=== PATIENT | male | born 1930 | race Caucasian/White ===

== ENCOUNTER 2018-04-24 15:17 | Inpatient (IN) | payer MEDICARE, OTHER ==
--- NOTE | 2018-04-24 16:16 | ED ---
HPI Chest Pain - HPI Summary HPI Summary: This is [facility] documenting for attending Timoteo Mcpherson This is [facility] documenting for attending Timoteo Matthews MD. Pt is a 87 y/o M c/o CP onset. Pain is described as and rated a /10 when asked. Assoc Sx: Denies: PMHx: FHx: Per triage, pt was at PMD office where EKG was done. They said that he needed to come in. He c/o chest pain last week according to family but nothing today. - History of Current Complaint Chief Complaint: EDGeneral Pain Intensity: 0 - Allergy/Home Medications Allergies/Adverse Reactions: Allergies Allergy/AdvReac Type Severity Reaction Status Date / Time No Known Allergies Allergy Verified 04/21/16 12:03 PMH/Surg Hx/FS Hx/Imm Hx Endocrine/Hematology History: Reports: Hx Diabetes Denies: Hx Anticoagulant Therapy, Hx Systemic Lupus Erythematosus, Hx Thyroid Disease Cardiovascular History: Reports: Hx Hypercholesterolemia, Hx Hypertension Denies: Hx Congestive Heart Failure, Hx Pacemaker/ICD Respiratory History: Denies: Hx Asthma, Hx Chronic Obstructive Pulmonary Disease (COPD) GI History: Denies: Hx Ulcer History: Denies: Hx Dialysis, Hx Renal Disease Musculoskeletal History: Reports: Hx Rheumatoid Arthritis, Hx Osteoporosis, Other Musculoskeletal History - pain right arm and swelling, fibromyalgia, arthritis Denies: Hx Scoliosis Sensory History: Reports: Hx Contacts or Glasses, Hx Hearing Aid Opthamlomology History: Reports: Hx Contacts or Glasses Neurological History: Denies: Hx Headaches, Other Neuro Impairments/Disorders Psychiatric History: Denies: Hx Panic Disorder - Cancer History Hx Chemotherapy: No - Surgical History Surgery Procedure, Year, and Place: TONSILS. Rt CATARACT Infectious Disease History: No Infectious Disease History: Denies: Hx Hepatitis, Hx Human Immunodeficiency Virus (HIV), Traveled Outside the [place] in Last 30 Days - Family History Known Family History: Positive: Cardiac Disease - Social History Occupation: Retired Lives: With Family Substance Use Type: Reports: None Physical Exam - Summary Physical Exam Summary: Constitutional: Well-developed, Well-nourished, Alert. (-) Distressed Skin: Warm, Dry HENT: Normocephalic; Atraumatic Eyes: Conjunctiva normal Neck: Musculoskeletal ROM normal neck. (-) JVD, (-) Stridor, (-) Tracheal deviation Cardio: Rhythm regular, rate normal, Heart sounds normal; Intact distal pulses; The pedal pulses are 2+ and symmetric. Radial pulses are 2+ and symmetric. (-) Murmur Pulmonary/Chest wall: Effort normal. (-) Respiratory distress, (-) Wheezes, (-) Rales Abd: Soft, (-), epigastric tenderness, (-) Distension, (-) Guarding, (-) Rebound Musculoskeletal: (-) Edema Lymph: (-) Cervical adenopathy Neuro: Alert, Oriented x3 Psych: Mood and affect Normal Triage Information Reviewed: Yes Vital Signs On Initial Exam: Initial Vitals Temp Pulse Resp BP Pulse Ox 98.3 F 61 16 95/71 93 04/24/18 15:24 04/24/18 15:24 04/24/18 15:24 04/24/18 15:24 04/24/18 15:24 Vital Signs Reviewed: Yes Diagnostics - Vital Signs Vital Signs Temp Pulse Resp BP Pulse Ox 04/24/18 15:24 98.3 F 61 16 95/71 93 - Laboratory Result Diagrams: 04/24/18 16:25 04/24/18 16:25 Lab Statement: Any lab studies that have been ordered have been reviewed, and results considered in the medical decision making process. Discharge - Discharge Plan Referrals: Dominic Layton MD [Primary Care Provider] -
[2018-04-24 16:35] LABS: Hematocrit 37 % (42-52); Hemoglobin 12.4 g/dl (14.0-18.0); Mean Corpuscular HGB Conc 34 g/dl (31-36); Mean Corpuscular Hemoglobin 30 pg (27-31); Mean Corpuscular Volume 90 fL (80-94); Platelet Count 261 10^3/ul (150-450); Red Blood Count 4.12 10^6/ul (4.00-5.40); Red Cell Distribution Width 15 % (10.5-15); White Blood Count 10.9 10^3/ul (3.5-10.8)
[2018-04-24 16:55] LABS: EGFR Non-African American 19.9 (>60)
[2018-04-24] MEDS ORDERED: NS 0.9% 1000 ML* 1,000 ML IV ONE (17:12)
--- NOTE | 2018-04-24 17:49 | RAD ---
INDICATION: Chest pain. COMPARISON: Comparison is made with a prior study from December 03, 2012. TECHNIQUE: Dual-energy PA and lateral views of the chest were obtained. FINDINGS: The heart is within normal limits in size. Mediastinal and hilar contours appear within normal limits. The lungs are clear. No pleural effusion is present. IMPRESSION: NO EVIDENCE FOR ACTIVE CARDIOPULMONARY DISEASE.
[2018-04-24 17:58] LABS: ABS Basophils 0.1 10^3/ul (0-0.2); ABS Eosinophils 0.4 10^3/ul (0-0.6); ABS Lymphocytes 0.8 10^3/ul (1.0-4.8); ABS Monocytes 0.6 10^3/ul (0-0.8); ABS Neutrophils 9.8 10^3/ul (1.5-7.7); ABS Nucleated RBC 0 10^3/ul; Eosinophil % 3.1 % (0-6); Lymphocyte % 7.2 % (25-47); Nucleated Red Blood Cells % 0.2
[2018-04-24] MEDS ORDERED: Aspirin 81 mg CHEW TAB* 81 MG TAB.CHEW PO ONE (18:34)
--- NOTE | 2018-04-24 18:52 | ED ---
HPI Cardiac - HPI Summary HPI Summary: This is [facility] documenting for attending Timoteo Matthews MD. LEVEL 5 CAVEAT DUE TO ALZHEIMERS This patient is an 87 year old M presenting to ED with a chief complaint of intermittent episodes of hypotension since about 1 month ago. Family reports his BP drops down to 70/40 after sitting down for a while. Then when he tries to stand up, he falls. Hes had multiple falls in the past month and has obtained an accumulation of multiple injuries to his legs bilaterally from them. He went to see his PCP and they recommended he come to the ED to be evaluated. Two nights ago was his last fall and he was found lying on the floor for 6 hours yesterday morning. The patient rates the pain 0/10 in severity. Symptoms aggravated by sitting down then standing up. Symptoms alleviated by nothing. Family reports 17 lbs weight loss in the past month due to decreased appetite, confusion secondary to Alzheimers, CP (one episode on 04/18/18), and he has been retaining urine recently. Patient denies LOC, burning with urination or unusual odor, and hematochezia. Family also says the patient wanders at night due to Alzheimers. The patient still has his appendix. - History of Current Complaint Chief Complaint: EDGeneral Stated Complaint: CHEST PAIN Hx Obtained From: Patient Hx From Patient Unobtainable Due To: Other - Alzheimer's Onset/Duration: Started Weeks Ago - began about 1 month ago, Resolved Timing: Intermittent, Lasting Weeks - since 1 month ago Current Severity: None Pain Intensity: 0 Pain Scale Used: 0-10 Numeric Aggravating Factor(s): Position - sitting down then standing up Alleviating Factor(s): Nothing Associated Signs and Symptoms: Positive: Chest Pain - one episode on 04/18/18, Other: - hypotension, has had multiple falls in the past month and obtained multiple injuries to his legs bilaterally, 17 lbs weight loss in the past month due to decreased appetite, confusion secondary to Alzheimers, retaining urine; denies LOC, burning with urination or unusual odor, and hematochezia. - Allergy/Home Medications Allergies/Adverse Reactions: Allergies Allergy/AdvReac Type Severity Reaction Status Date / Time No Known Allergies Allergy Verified 04/21/16 12:03 Home Medications: Home Medications Aspirin EC TAB* [Ecotrin EC Low Dose 81 MG*] 81 mg PO DAILY 04/24/18 [History Confirmed 04/24/18] Leflunomide (NF) [Arava (NF)] 10 mg PO DAILY 04/24/18 [History Confirmed ] Lisinopril TAB* [Prinivil TAB*] 20 mg PO DAILY 04/24/18 [History Confirmed 04/24] Melatonin 10 mg PO BEDTIME 04/24/18 [History Confirmed 04/24/18] Metoprolol Succinate XL TAB* [Toprol XL TAB*] 50 mg PO DAILY 04/24/18 [History Confirmed 04/24/18] Pramipexole TAB* [Mirapex TAB*] 0.5 mg PO BID 04/24/18 [History Confirmed ] Pramipexole TAB* [Mirapex TAB*] 1 mg PO BEDTIME 04/24/18 [History Confirmed ] Pregabalin [Lyrica] 75 mg PO BID 04/24/18 [History Confirmed 04/24/18] Rivastigmine Tartrate [Rivastigmine] 4.5 mg PO BID 04/24/18 [History Confirmed 04/24/18] Simvastatin TAB(NF) [Zocor(NF)] 20 mg PO QPM 04/24/18 [History Confirmed ] Sitagliptin (NF) [Januvia (NF)] 50 mg PO DAILY 04/24/18 [History Confirmed 04/24] traMADol TAB* [Ultram*] 50 mg PO BID PRN MDD 100 mg 04/24/18 [History Confirmed 04/24/18] PMH/Surg Hx/FS Hx/Imm Hx Endocrine/Hematology History: Reports: Hx Diabetes Denies: Hx Anticoagulant Therapy, Hx Systemic Lupus Erythematosus, Hx Thyroid Disease Cardiovascular History: Reports: Hx Hypercholesterolemia, Hx Hypertension Denies: Hx Congestive Heart Failure, Hx Pacemaker/ICD Respiratory History: Denies: Hx Asthma, Hx Chronic Obstructive Pulmonary Disease (COPD) GI History: Denies: Hx Ulcer History: Denies: Hx Dialysis, Hx Renal Disease Musculoskeletal History: Reports: Hx Rheumatoid Arthritis, Hx Osteoporosis, Other Musculoskeletal History - pain right arm and swelling, fibromyalgia, arthritis Denies: Hx Scoliosis Sensory History: Reports: Hx Contacts or Glasses, Hx Hearing Aid Opthamlomology History: Reports: Hx Contacts or Glasses Neurological History: Denies: Hx Headaches, Other Neuro Impairments/Disorders Psychiatric History: Denies: Hx Panic Disorder - Cancer History Hx Chemotherapy: No - Surgical History Surgery Procedure, Year, and Place: TONSILS. Rt CATARACT Infectious Disease History: No Infectious Disease History: Denies: Hx Hepatitis, Hx Human Immunodeficiency Virus (HIV), Traveled Outside the [place] in Last 30 Days - Family History Known Family History: Positive: Cardiac Disease - Social History Occupation: Retired Lives: With Family Alcohol Use: None Substance Use Type: Reports: None Smoking Status (MU): Former Smoker Review of Systems Positive: Chest Pain - one episode on 04/18/18 Positive: Other - 17 lbs weight loss in the past month due to decreased appetite ; denies hematochezia Positive: other - retaining urine; denies unusual odor in urine. Negative: burning Positive: Other - multiple injuries on legs bilaterally due to multiple falls in the past month Neurological: Other - confusion secondary to Alzheimers; denies LOC All Other Systems Reviewed And Are Negative: No Physical Exam - Summary Physical Exam Summary: Constitutional: Well-developed, Well-nourished, Alert. (-) Distressed Skin: Warm, Dry HENT: Normocephalic; Atraumatic; mucous membranes are dry Eyes: Conjunctiva normal Neck: Musculoskeletal ROM normal neck. (-) JVD, (-) Stridor, (-) Tracheal deviation Cardio: Rhythm regular, rate normal, Heart sounds normal; Intact distal pulses; The pedal pulses are 2+ and symmetric. Radial pulses are 2+ and symmetric. (-) Murmur Pulmonary/Chest wall: Effort normal. (-) Respiratory distress, (-) Wheezes, (-) Rales Abd: Soft, Suprapubic and RLQ tenderness, (-) Distension, (-) Guarding, (-) Rebound Musculoskeletal: (-) Edema Lymph: (-) Cervical adenopathy Neuro: Alert, Oriented x3 Psych: Mood and affect Normal Triage Information Reviewed: Yes Vital Signs On Initial Exam: Initial Vitals Temp Pulse Resp BP Pulse Ox 98.3 F 61 16 95/71 93 04/24/18 15:24 04/24/18 15:24 04/24/18 15:24 04/24/18 15:24 04/24/18 15:24 Vital Signs Reviewed: Yes Completion Of Physical Exam Limited Due To: Level 5 - Alzheimer's Diagnostics - Vital Signs Vital Signs Temp Pulse Resp BP Pulse Ox 04/24/18 17:36 24 114/51 04/24/18 17:06 73 23 98 04/24/18 15:24 98.3 F 61 16 95/71 93 - Laboratory Lab Results: Lab Results 04/24/18 04/24/18 04/24/18 Range/Units 16:25 16:25 16:25 WBC 10.9 H (3.5-10.8) 10^3/ul RBC 4.12 (4.00-5.40) 10^6/ul Hgb 12.4 L (14.0-18.0) g/dl Hct 37 L (42-52) % MCV 90 (80-94) fL MCH 30 (27-31) pg MCHC 34 (31-36) g/dl RDW 15 (10.5-15) % Plt Count 261 (150-450) 10^3/ul MPV 8.0 (7.4-10.4) um3 Neut % (Auto) 83.5 H (38-83) % Lymph % (Auto) 7.2 L (25-47) % [place] % (Auto) 5.5 (0-7) % Eos % (Auto) 3.1 (0-6) % Baso % (Auto) 0.7 (0-2) % Absolute Neuts (auto) 9.8 H (1.5-7.7) 10^3/ul Absolute Lymphs (auto) 0.8 L (1.0-4.8) 10^3/ul Absolute Monos (auto) 0.6 (0-0.8) 10^3/ul Absolute Eos (auto) 0.4 (0-0.6) 10^3/ul Absolute Basos (auto) 0.1 (0-0.2) 10^3/ul Absolute Nucleated RBC 0 10^3/ul Nucleated RBC % 0.2 Sodium 142 (135-145) mmol/L Potassium 4.6 (3.5-5.0) mmol/L Chloride 110 (101-111) mmol/L Carbon Dioxide 24 (22-32) mmol/L Anion Gap 8 (2-11) mmol/L BUN 73 H (6-24) mg/dL Creatinine 3.01 H (0.67-1.17) mg/dL Est GFR ( Amer) 24.1 (>60) Est GFR (Non-Af Amer) 19.9 (>60) BUN/Creatinine Ratio 24.3 H (8-20) Glucose 94 (70-100) mg/dL Lactic Acid 0.9 (0.5-2.0) mmol/L Calcium 8.9 (8.6-10.3) mg/dL Total Bilirubin 0.40 (0.2-1.0) mg/dL AST 22 (13-39) U/L ALT 12 (7-52) U/L Alkaline Phosphatase 57 (34-104) U/L Troponin I 0.05 H* (<0.04) ng/mL Total Protein 6.5 (6.4-8.9) g/dL Albumin 3.2 (3.2-5.2) g/dL Globulin 3.3 (2-4) g/dL Albumin/Globulin Ratio 1.0 (1-3) Result Diagrams: 04/24/18 16:25 04/24/18 16:25 Lab Statement: Any lab studies that have been ordered have been reviewed, and results considered in the medical decision making process. - Radiology CXR Radiology Interpretation Completed By: Radiologist - NO EVIDENCE FOR ACTIVE CARDIOPULMONARY DISEASE. ED physician has reviewed this radiology report. - EKG 1552 Cardiac Rate: Other Rate - afib at 79 BPM EKG Rhythm: Atrial Fibrillation ST Segment: Normal Disposition - Course Assessment/Plan: Orthostatic hypotension with low abdominal pain. CT due to his dementia. Acute on chronic renal failure. Medicine will follow up on CT. Nursing with instructions to place a juárez if unable to void. - Differential Dx - Cardiopulmonary Differential Diagnoses - Cardiopulmonary: Other - urinary retention, frequent fall, orthostasis, lower abdominal pain, elevated troponin - Diagnoses Provider Diagnoses: Urinary retention, Frequent falls, Orthostasis, Lower abdominal pain, Elevated troponin - Physician Notifications Discussed Care Of Patient With: Lokesh Benito Time Discussed With Above Provider: 18:48 Instructed by Provider To: Other - Consulted Dr. Benito at 1848 who accepts the patient for admission. - Critical Care Time Critical Care Time: 30-74 min - 35 minutes Discharge - Sign-Out/Discharge Documenting (check all that apply): Patient Departure - Discharge Plan Condition: Stable Disposition: ADMITTED TO [facility] Referrals: Dominic Layton MD [Primary Care Provider] -
--- NOTE | 2018-04-24 20:29 | HP ---
H&P (Free Text) History and Physical: PCP: VERONICA Layton MD Date/Time: 04/24/20182124 CC: sent by PCP for frequent falls, orthostatic vitals in office HPI: Mr Kimball is an 87YO male HX dementia, DM2, RA, HTN, HLD, RLS who was seen by his PCP's office today wherein family reported 4-5 falls over the past week, 17# weight loss over the last month, & poor PO intake. They do recall a brief episode of chest discomfort last Monday, but the patient cannot characterize or give any associated s/s. He reports some sweats, but cannot further give information other than it is not new. He otherwise denies any symptomotology, specifically no chest pain, SOB, N/V/D, F/C, focal W/N/T, change in speech/ swallow, and headache. His last bowel movement per was this AM and "very normal", no black or bloody aspect. PMedHx dementia, moderate DM2 HTN HLD rheumatoid arthritis Ambulatory Orders Furosemide TAB* [Lasix TAB*] 20 mg PO DAILY 04/21/16 Aspirin EC TAB* [Ecotrin EC Low Dose 81 MG*] 81 mg PO DAILY 04/24/18 Leflunomide (NF) [Arava (NF)] 10 mg PO DAILY 04/24/18 Lisinopril TAB* [Prinivil TAB*] 20 mg PO DAILY 04/24/18 Melatonin 10 mg PO BEDTIME 04/24/18 Metoprolol Succinate XL TAB* [Toprol XL TAB*] 50 mg PO DAILY 04/24/18 Pramipexole TAB* [Mirapex TAB*] 0.5 mg PO BID 04/24/18 Pramipexole TAB* [Mirapex TAB*] 1 mg PO BEDTIME 04/24/18 Pregabalin [Lyrica] 75 mg PO BID 04/24/18 Rivastigmine Tartrate [Rivastigmine] 4.5 mg PO BID 04/24/18 Simvastatin TAB(NF) [Zocor(NF)] 20 mg PO QPM 04/24/18 Sitagliptin (NF) [Januvia (NF)] 50 mg PO DAILY 04/24/18 traMADol TAB* [Ultram*] 50 mg PO BID PRN MDD 100 mg 04/24/18 Allergies No Known Allergies Allergy (Verified 04/21/16 12:03) PSurgHx cataract extraction tonsillectomy SocHx: trivial smoking HX, no alcohol or recreational drugs; lives with his ; 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; DNR/I code status FamHx: reviewed & non-contributory to presentation ROS: as above, otherwise reviewed and all were negative vitals: Vital Signs Temp 36.8 C 04/24/18 15:24 Pulse 80 04/24/18 20:35 Resp 23 04/24/18 20:35 BP 143/77 04/24/18 20:35 Pulse Ox 100 04/24/18 20:35 Intake & Output 04/23/18 04/24/18 04/24/18 23:59 11:59 23:59 Intake Total 1000 Balance 1000 Weight 64.864 kg Intake: IV Fluids 1000 Constitutional: NAD, normally developed, well-nourished elderly white male HEENM: atraumatic; sclera/conjunctiva: anicteric/clear; hearing: clinically mildly decreased; oropharynx: clear, mucosa tacky Neck: soft tissue: non-tender; thyroid: normal Pulmonary: clear to auscultation bilaterally, good aeration, no accessory muscle use CV: RR/RR, normal S1S2, no carotid bruit, no jugular venous distention, 2+ B DP/ PT, 1+ BLE edema Abdominal: soft, non-distended, minimal transient tenderness which cleared with further palpation, no rebound/guarding/rigidity, normoactive bowel sounds, no hepatosplenomegaly or masses, no costovertebral angle tenderness Musculoskeletal: general: grossly intact, non-tender Integumental: light erythema B shins w/o warmth, induration, tenderness, flocculence, or discharge; band-aid to R morrow Psychiatric orientation: AA&O to PP, very loosely to situation affect: calm mood: pleasant eye contact: fair content: paucity of details memory: poor responses: mildly slowed insight: poor Testing: Lab Results 04/24/18 04/24/18 04/24/18 Range/Units 16:25 16:25 16:25 WBC 10.9 H (3.5-10.8) 10^3/ul RBC 4.12 (4.00-5.40) 10^6/ul Hgb 12.4 L (14.0-18.0) g/dl Hct 37 L (42-52) % MCV 90 (80-94) fL MCH 30 (27-31) pg MCHC 34 (31-36) g/dl RDW 15 (10.5-15) % Plt Count 261 (150-450) 10^3/ul MPV 8.0 (7.4-10.4) um3 Neut % (Auto) 83.5 H (38-83) % Lymph % (Auto) 7.2 L (25-47) % [place] % (Auto) 5.5 (0-7) % Eos % (Auto) 3.1 (0-6) % Baso % (Auto) 0.7 (0-2) % Absolute Neuts (auto) 9.8 H (1.5-7.7) 10^3/ul Absolute Lymphs (auto) 0.8 L (1.0-4.8) 10^3/ul Absolute Monos (auto) 0.6 (0-0.8) 10^3/ul Absolute Eos (auto) 0.4 (0-0.6) 10^3/ul Absolute Basos (auto) 0.1 (0-0.2) 10^3/ul Absolute Nucleated RBC 0 10^3/ul Nucleated RBC % 0.2 Sodium 142 (135-145) mmol/L Potassium 4.6 (3.5-5.0) mmol/L Chloride 110 (101-111) mmol/L Carbon Dioxide 24 (22-32) mmol/L Anion Gap 8 (2-11) mmol/L BUN 73 H (6-24) mg/dL Creatinine 3.01 H (0.67-1.17) mg/dL Est GFR ( Amer) 24.1 (>60) Est GFR (Non-Af Amer) 19.9 (>60) BUN/Creatinine Ratio 24.3 H (8-20) Glucose 94 (70-100) mg/dL Lactic Acid 0.9 (0.5-2.0) mmol/L Calcium 8.9 (8.6-10.3) mg/dL Total Bilirubin 0.40 (0.2-1.0) mg/dL AST 22 (13-39) U/L ALT 12 (7-52) U/L Alkaline Phosphatase 57 (34-104) U/L Troponin I 0.05 H* (<0.04) ng/mL Total Protein 6.5 (6.4-8.9) g/dL Albumin 3.2 (3.2-5.2) g/dL Globulin 3.3 (2-4) g/dL Albumin/Globulin Ratio 1.0 (1-3) ECG, personally reviewed: sinus 1st degree AV block rate 79, no ischemia; similar to comparison 12/03/2012 but with an increased degree of 1st degree block CXR, personally reviewed: IMPRESSION: NO EVIDENCE FOR ACTIVE CARDIOPULMONARY DISEASE. CT chest WO, personally reviewed: IMPRESSION: 1. Stable small hiatal hernia. 2. There may be cholelithiasis without pericholecystic inflammatory change. 3. Left testicle appears to be high riding in the left inguinal canal. 4. Stable colonic diverticulosis. There is mild wall thickening and the proximal aspect of the sigmoid colon which may be due to underdistention, we cannot completely exclude mild or early changes of acute diverticulitis or non-specific colitis without abscess or signs of gross perforation. Impression: 87M HX dementia, DM2, RA, HTN, HLD, RLS presents with dehydration, orthostasis, & LAURA w/ recurrent falls & elevated troponin; mildly abnormal CT abd/pel DIAGNOSIS & PLAN Primary dehydration w/ orthostasis & LAURA : IVFs : recheck orthostatic vitals in AM : trend renal function : supportive care recurrent recent falls : as above : PT consult in AM mildly abnormal CT abd/pel : trend WBCs & temperature curves : no indication for ABX at this time Secondary dementia, moderate : continue rivastigmine DM2 : check A1c : continue sitagliptin : consistent carb diet : correctional insulin HTN : hold furosemide : continue lisinopril at decreased dose of 10mg QAM : continue metoprolol XL at 50mg HS restarting 04/25 HLD : continue simvastatin rheumatoid arthritis : continue leflunomide RLS : continue pramipexole Admission Rational: Inpatient as without the above interventions the risk of impending adverse outcome is unacceptably high; inappropriate for the outpatient setting DVTp: heparin SQ Code Status: DNR/I, MOLST filled out HCP:
[2018-04-24] MEDS ORDERED: Ondansetron ODT TAB* 4 MG PO PRN (22:12)
[2018-04-24] MEDS ORDERED: traMADol TAB* 50 MG PO PRN (22:16)
[2018-04-24] MEDS: Pramipexole TAB* 0.5 MG PO SCH ×2 (23:40)
[2018-04-24] MEDS: CMCS:Rivastigmine CAP(NF) 1.5 MG CAP PO SCH (23:41)
[2018-04-24] MEDS: NS 0.9% 1000 ML* 1,000 ML IV SCH (23:44)
[2018-04-25] MEDS: Melatonin 3 MG TAB PO PRN (01:32)
[2018-04-25] MEDS: Heparin VIAL(*) 5000 UNITS/ML VIAL (FIVE THOUSAND) SUBCUT SCH ×3 (05:22→20:49)
[2018-04-25 06:22] LABS: ABS Basophils 0 10^3/ul (0-0.2); ABS Eosinophils 0.3 10^3/ul (0-0.6); ABS Lymphocytes 0.8 10^3/ul (1.0-4.8); ABS Monocytes 0.6 10^3/ul (0-0.8); ABS Neutrophils 7.8 10^3/ul (1.5-7.7); ABS Nucleated RBC 0 10^3/ul; Eosinophil % 3.4 % (0-6); Hematocrit 34 % (42-52); Hemoglobin 11.3 g/dl (14.0-18.0); Lymphocyte % 8.1 % (25-47); Mean Corpuscular HGB Conc 33 g/dl (31-36); Mean Corpuscular Hemoglobin 30 pg (27-31); Mean Corpuscular Volume 89 fL (80-94); Nucleated Red Blood Cells % 0; Platelet Count 212 10^3/ul (150-450); Red Blood Count 3.81 10^6/ul (4.00-5.40); Red Cell Distribution Width 15 % (10.5-15); White Blood Count 9.6 10^3/ul (3.5-10.8)
[2018-04-25] MEDS: Acetaminophen TAB* 325 MG PO PRN ×2 (07:18→13:33)
--- NOTE | 2018-04-25 08:10 | RAD ---
CLINICAL HISTORY: LOWER ABD PAIN, RLQ PAIN COMPARISON: September 17, 2013 TECHNIQUE: Multiple contiguous axial CT scans were obtained of the abdomen and pelvis, without intravenous contrast enhancement. Coronal and sagittal multiplanar reformations are submitted for review. Oral contrast was administered. FINDINGS: The study is limited by the lack of intravenous contrast. This limits evaluation of the solid organs and vasculature. LUNG BASES: The lung bases are clear. LIVER: The liver is normal in shape, size, contour, and attenuation. BILE DUCTS: There is no intrahepatic or extrahepatic biliary dilatation. GALLBLADDER: There is a calculus noted within the gallbladder. There is no pericholecystic inflammatory change. PANCREAS: The pancreas is normal, without mass or ductal dilatation. SPLEEN: Normal in size and appearance. UPPER GI TRACT: Evaluation of the gastrointestinal tract is limited by incomplete gastric distention. There is a small hiatal hernia. SMALL BOWEL AND MESENTERY: The small bowel is normal in contour, course, and caliber. There is no obstruction or dilatation. COLON: There are multiple diverticula of the descending and sigmoid colon. There is mild mucosal thickening of the sigmoid colon.. The appendix is not identified. There is no appreciable inflammatory change within the right lower quadrant. ADRENALS: Normal bilaterally. KIDNEYS: There is an exophytic simple cyst of the midpole the right kidney. There is a simple cyst of the midpole of the left kidney. There is no appreciable hydronephrosis or nephrolithiasis. BLADDER: The bladder is collapsed around a Christiansen catheter. PELVIC ORGANS: The prostate is diffusely enlarged. The seminal vesicles are symmetric. The left testicle is noted in the inferior extent of the left internal canal. AORTA: There is calcific atherosclerotic disease of the abdominal aorta and its branches, without aneurysmal dilatation IVC: Unremarkable LYMPH NODES: There is no lymphadenopathy by size criteria. ABDOMINAL WALL: There is no evidence for abdominal wall hernia. BONES AND SOFT TISSUES: There is a scoliotic curvature of the spine. Degenerative changes are noted. OTHER: None IMPRESSION: 1. DIVERTICULOSIS. THERE IS MILD MUCOSAL THICKENING OF THE SIGMOID COLON WHICH MAY BE AN ARTIFACT OF INCOMPLETE DISTENTION, THOUGH EARLY COLITIS/DIVERTICULITIS IS WITHIN THE DIFFERENTIAL. 2. CHOLELITHIASIS. 3. HIATAL HERNIA. 4. THE APPENDIX IS NOT VISUALIZED. THERE IS NO INFLAMMATORY CHANGE OF THE RIGHT LOWER QUADRANT. R0
[2018-04-25] MEDS: Docusate CAP* 100 MG PO SCH ×2 (08:12→20:44)
[2018-04-25] MEDS: Insulin LISPRO* 1 UNITS UNIT SUBCUT SCH ×4 (08:13→20:19)
[2018-04-25] MEDS ORDERED: Lisinopril TAB* 10 MG PO SCH (09:00)
[2018-04-25] MEDS: Pregabalin CAP(*) 25 MG PO SCH ×2 (09:11→20:44)
[2018-04-25] MEDS: Pramipexole TAB* 0.5 MG PO SCH ×3 (09:12→20:46)
[2018-04-25] MEDS: LEFLUNOMIDE 10 MG PO SCH (09:12)
[2018-04-25] MEDS: Aspirin EC TAB* 81 MG TAB.EC PO SCH (09:12)
[2018-04-25] MEDS: CMCS:SitaGLIPtin (NF) 25 MG TAB PO SCH (09:13)
[2018-04-25] MEDS: CMCS:Rivastigmine CAP(NF) 1.5 MG CAP PO SCH ×2 (09:13→20:48)
[2018-04-25] MEDS: NS 0.9% 1000 ML* 1,000 ML IV SCH (09:13)
[2018-04-25] MEDS ORDERED: NS 0.9% 1000 ML* 1,000 ML IV SCH (15:30)
[2018-04-25] MEDS: traMADol TAB* 50 MG PO SCH (16:36)
[2018-04-25] MEDS ORDERED: Atorvastatin* 10 MG TAB PO SCH (18:00)
--- NOTE | 2018-04-25 20:14 | PN ---
Subjective Date of Service: 04/25/18 Interval History: c/o bilat ankle pain chronic, C/o right shoulder pain , Denies chest pain or shortness of breath . Denies n/v/d. patient is confused to place and time. Family History: Unchanged from Admission Social History: Unchanged from Admission Past Medical History: Unchanged from Admission Objective Active Medications: Acetaminophen (Tylenol Tab*) 650 mg PO Q6H PRN PRN Reason: FEVER/PAIN Last Admin: 04/25/18 13:33 Dose: 650 mg Aspirin (Aspirin Ec Tab*) 81 mg PO DAILY [facility] Last Admin: 04/25/18 09:12 Dose: 81 mg Atorvastatin Calcium (Lipitor*) 10 mg PO QPM [facility] Last Admin: 04/25/18 16:36 Dose: 10 mg Docusate Sodium (Colace Cap*) 100 mg PO BID [facility] Last Admin: 04/25/18 08:12 Dose: Not Given Heparin Sodium (Porcine) (Heparin Vial(*)) 5,000 units SUBCUT Q8HR [facility] Last Admin: 04/25/18 13:32 Dose: 5,000 units Insulin Human Lispro (Humalog*) 0 units SUBCUT ACHS [facility]; Protocol Last Admin: 04/25/18 16:37 Dose: Not Given Leflunomide (Arava (Nf)) 10 mg PO DAILY [facility]; Protocol Last Admin: 04/25/18 09:12 Dose: 10 mg Melatonin (Melatonin) 3 mg PO BEDTIME PRN; Protocol PRN Reason: Sleep Last Admin: 04/25/18 01:32 Dose: 3 mg Metoprolol Succinate (Toprol Xl Tab*) 25 mg PO QPM [facility] Ondansetron HCl (Zofran Odt Tab*) 4 mg PO Q6H PRN PRN Reason: n/v Last Admin: 04/25/18 01:32 Dose: 4 mg Pramipexole Dihydrochloride (Mirapex Tab*) 1 mg PO BEDTIME [facility] Last Admin: 04/24/18 23:40 Dose: 1 mg Pramipexole Dihydrochloride (Mirapex Tab*) 0.5 mg PO BID [facility] Last Admin: 04/25/18 09:12 Dose: 0.5 mg Pregabalin (Lyrica Cap(*)) 75 mg PO BID [facility] Last Admin: 04/25/18 09:11 Dose: 75 mg Rivastigmine Tartrate (Exelon (Nf)) 4.5 mg PO BID [facility] Last Admin: 04/25/18 09:13 Dose: 4.5 mg Sitagliptin Phosphate (Januvia (Nf)) 50 mg PO DAILY [facility] Last Admin: 04/25/18 09:13 Dose: 50 mg Tramadol HCl (Ultram*) 50 mg PO 0600,1800 [facility] Last Admin: 04/25/18 16:36 Dose: 50 mg Vital Signs - 8 hr 04/25/18 04/25/18 04/25/18 12:13 12:22 12:31 Temperature Pulse Rate 57 56 54 Respiratory Rate Blood Pressure 117/52 128/54 122/70 (mmHg) O2 Sat by Pulse 99 96 Oximetry 04/25/18 04/25/18 04/25/18 12:32 15:31 16:36 Temperature 96.9 F Pulse Rate 56 59 Respiratory 20 17 Rate Blood Pressure 128/54 135/55 (mmHg) O2 Sat by Pulse 98 Oximetry 04/25/18 04/25/18 04/25/18 18:16 19:41 19:45 Temperature 97.5 F Pulse Rate 57 Respiratory 20 20 18 Rate Blood Pressure 131/58 (mmHg) O2 Sat by Pulse 99 Oximetry Oxygen Devices in Use Now: None Appearance: appears comfortable resting in bed Eyes: No Scleral Icterus Ears/Nose/Mouth/Throat: Clear Oropharnyx, Mucous Membranes Moist Neck: NL Appearance and Movements; NL JVP, Trachea Midline Respiratory: Symmetrical Chest Expansion and Respiratory Effort, Clear to Auscultation Cardiovascular: NL Sounds; No Murmurs; No JVD, No Edema Abdominal: NL Sounds; No Tenderness; No Distention Extremities: No Clubbing, Cyanosis, - - bilat lower ext with pitting edema + 2 Skin: No Rash or Ulcers, No Nodules or Sclerosis Neurological: - - confused to place and time Nutrition: Taking PO's Result Diagrams: 04/26/18 05:23 04/26/18 05:23 Additional Lab and Data: Lab Results 04/24/18 04/24/18 04/24/18 Range/Units 16:25 16:25 16:25 WBC 10.9 H (3.5-10.8) 10^3/ul RBC 4.12 (4.00-5.40) 10^6/ul Hgb 12.4 L (14.0-18.0) g/dl Hct 37 L (42-52) % MCV 90 (80-94) fL MCH 30 (27-31) pg MCHC 34 (31-36) g/dl RDW 15 (10.5-15) % Plt Count 261 (150-450) 10^3/ul MPV 8.0 (7.4-10.4) um3 Neut % (Auto) 83.5 H (38-83) % Lymph % (Auto) 7.2 L (25-47) % Shelby % (Auto) 5.5 (0-7) % Eos % (Auto) 3.1 (0-6) % Baso % (Auto) 0.7 (0-2) % Absolute Neuts (auto) 9.8 H (1.5-7.7) 10^3/ul Absolute Lymphs (auto) 0.8 L (1.0-4.8) 10^3/ul Absolute Monos (auto) 0.6 (0-0.8) 10^3/ul Absolute Eos (auto) 0.4 (0-0.6) 10^3/ul Absolute Basos (auto) 0.1 (0-0.2) 10^3/ul Absolute Nucleated RBC 0 10^3/ul Nucleated RBC % 0.2 Sodium 142 (135-145) mmol/L Potassium 4.6 (3.5-5.0) mmol/L Chloride 110 (101-111) mmol/L Carbon Dioxide 24 (22-32) mmol/L Anion Gap 8 (2-11) mmol/L BUN 73 H (6-24) mg/dL Creatinine 3.01 H (0.67-1.17) mg/dL Est GFR ( Amer) 24.1 (>60) Est GFR (Non-Af Amer) 19.9 (>60) BUN/Creatinine Ratio 24.3 H (8-20) Glucose 94 (70-100) mg/dL Lactic Acid 0.9 (0.5-2.0) mmol/L Calcium 8.9 (8.6-10.3) mg/dL Total Bilirubin 0.40 (0.2-1.0) mg/dL AST 22 (13-39) U/L ALT 12 (7-52) U/L Alkaline Phosphatase 57 (34-104) U/L Troponin I 0.05 H* (<0.04) ng/mL Total Protein 6.5 (6.4-8.9) g/dL Albumin 3.2 (3.2-5.2) g/dL Globulin 3.3 (2-4) g/dL Albumin/Globulin Ratio 1.0 (1-3) Assess/Plan/Problems-Billing Assessment: Mr. Kimball is a 87 y.o male with a hx of dementia , DM2, RA,HTN, HLD and RLS who presented to the emergency room with frequent falls and orthostatic vital sign at his PCP office. Patient also reported remote history of chest pain , but currently denies any chest pain. - Patient Problems (1) Falls Current Visit: Yes Status: Acute Comment: -suspect this is related to his orthostatic hypotension - Orthostatic repeated today and are WNL after IV hydration - Will stop IVF - PT/OT consult (2) HTN (hypertension) Current Visit: Yes Status: Acute Code(s): I10 - ESSENTIAL (PRIMARY) HYPERTENSION SNOMED Code(s): 34615130 Comment: patient with orthostatic hypotension -will stop lisinopril - will decrease metoprolol to 25 mg po daily - patient with episode of 2 sec pauses asymptomatic (3) [id number] kidney injury Current Visit: Yes Status: Acute Code(s): N17.9 - ACUTE KIDNEY FAILURE, UNSPECIFIED; N18.9 - CHRONIC KIDNEY DISEASE, UNSPECIFIED SNOMED Code(s): 296904555 Comment: -Will stop lisinopril as this can contribute to his kidney injury - will avoid nephrotoxic medications - repeat BMP in the AM _ BUN/Creatinine improved today (4) Dementia Current Visit: Yes Status: Acute Code(s): F03.90 - UNSPECIFIED DEMENTIA WITHOUT BEHAVIORAL DISTURBANCE SNOMED Code(s): 28982846 Comment: supportive care (5) Diabetes Current Visit: Yes Status: Acute Code(s): E11.9 - TYPE 2 DIABETES MELLITUS WITHOUT COMPLICATIONS SNOMED Code(s): 96094012 Comment: Lispro SS Fingersticks continue Januiva (6) HLD (hyperlipidemia) Current Visit: Yes Status: Acute Code(s): E78.5 - HYPERLIPIDEMIA, UNSPECIFIED SNOMED Code(s): 40196777 Comment: Continue Lipitor (7) DVT prophylaxis Current Visit: Yes Status: Acute Code(s): CAJ0516 - SNOMED Code(s): 379862418 Comment: Heparin SubQ (8) DNR (do not resuscitate) Current Visit: Yes Status: Acute Status and Disposition: inpatient - possible discharge in tomorrow
[2018-04-25] MEDS ORDERED: Metoprolol Succinate XL TAB* 50 MG PO SCH ×2 (21:00)
[2018-04-26 05:12] LABS: Urine Appearance Clear; Urine Blood 3+ (Negative); Urine Color Yellow; Urine Ketones Negative (Negative); Urine Protein Negative (Negative); Urine Red Blood Cell 3+(>10/hpf) (Absent); Urine Specific Gravity 1.016 (1.010-1.030); Urine Urobilinogen Negative (Negative); Urine White Blood Cell Trace(0-5/hpf) (Absent)
[2018-04-26 05:38] LABS: ABS Basophils 0 10^3/ul (0-0.2); ABS Eosinophils 0.2 10^3/ul (0-0.6); ABS Lymphocytes 0.5 10^3/ul (1.0-4.8); ABS Monocytes 0.5 10^3/ul (0-0.8); ABS Neutrophils 7.8 10^3/ul (1.5-7.7); ABS Nucleated RBC 0 10^3/ul; Eosinophil % 2.5 % (0-6); Hematocrit 33 % (42-52); Hemoglobin 11.2 g/dl (14.0-18.0); Lymphocyte % 5.3 % (25-47); Mean Corpuscular HGB Conc 34 g/dl (31-36); Mean Corpuscular Hemoglobin 30 pg (27-31); Mean Corpuscular Volume 88 fL (80-94); Mean Platelet Volume 7.8 um3 (7.4-10.4); Nucleated Red Blood Cells % 0; Platelet Count 195 10^3/ul (150-450); Red Blood Count 3.72 10^6/ul (4.00-5.40); Red Cell Distribution Width 15 % (10.5-15)
[2018-04-26 05:54] LABS: EGFR Non-African American 35.1 (>60)
[2018-04-26] MEDS: traMADol TAB* 50 MG PO SCH ×2 (05:59→18:05)
[2018-04-26] MEDS: Heparin VIAL(*) 5000 UNITS/ML VIAL (FIVE THOUSAND) SUBCUT SCH ×3 (06:01→21:18)
[2018-04-26] MEDS ORDERED: Atropine 1MG/ML INJ* 1 ML VIAL IV PUSH ONE (06:32)
--- NOTE | 2018-04-26 06:36 | PN ---
Progress Note - Progress Note Date of Service: 04/26/18 Note: Nursing called reporting rhythm strip suspicious of 2nd HB Mobitz 2. While I was on the floor assessing the strip, he developed a brief episode of 3rd degree HB dropping 6 consecutive P-waves w/ 2 ventricular escape beats before recovering to a 1st degree AV block. He denied symptomotology. He is confused an unable to consent for pacer placement should that be necessary. He is on metoprolol 25mg, last dose given at 04/25. Assessment: plan 3rd degree HB : D/C metoprolol : give 0.5mg IV atropine x1 now : transfer to ICU : will need cardiology consult this AM & discussion w/ family as to their desire for pacer placement, if indicated
[2018-04-26] MEDS: Insulin LISPRO* 1 UNITS UNIT SUBCUT SCH ×4 (07:53→20:27)
[2018-04-26] MEDS: Docusate CAP* 100 MG PO SCH ×2 (09:32→20:08)
[2018-04-26] MEDS: CMCS:SitaGLIPtin (NF) 25 MG TAB PO SCH (09:32)
[2018-04-26] MEDS: Aspirin EC TAB* 81 MG TAB.EC PO SCH (09:32)
--- NOTE | 2018-04-26 09:32 | PN ---
Subjective Date of Service: 04/26/18 Interval History: Patient had several beats of 3 degree heart block during the night. was given atropine and transferred to ICU, Patient was asymptomatic. Continue to have some difficulty with urination. Denies shortness of breath or chest pain this AM. Confused to time and place, reports that he is in [place]. follow commands. Denies abd pain, states that shoulder pain in better. Family History: Unchanged from Admission Social History: Unchanged from Admission Past Medical History: Unchanged from Admission Objective Active Medications: Acetaminophen (Tylenol Tab*) 650 mg PO Q6H PRN PRN Reason: FEVER/PAIN Last Admin: 04/25/18 13:33 Dose: 650 mg Aspirin (Aspirin Ec Tab*) 81 mg PO DAILY [facility] Last Admin: 04/25/18 09:12 Dose: 81 mg Atorvastatin Calcium (Lipitor*) 10 mg PO QPM [facility] Last Admin: 04/25/18 16:36 Dose: 10 mg Docusate Sodium (Colace Cap*) 100 mg PO BID [facility] Last Admin: 04/25/18 20:44 Dose: Not Given Heparin Sodium (Porcine) (Heparin Vial(*)) 5,000 units SUBCUT Q8HR [facility] Last Admin: 04/26/18 06:01 Dose: 5,000 units Insulin Human Lispro (Humalog*) 0 units SUBCUT ACHS [facility]; Protocol Last Admin: 04/26/18 07:53 Dose: Not Given Leflunomide (Arava (Nf)) 10 mg PO DAILY [facility]; Protocol Last Admin: 04/25/18 09:12 Dose: 10 mg Melatonin (Melatonin) 3 mg PO BEDTIME PRN; Protocol PRN Reason: Sleep Last Admin: 04/25/18 01:32 Dose: 3 mg Ondansetron HCl (Zofran Odt Tab*) 4 mg PO Q6H PRN PRN Reason: n/v Last Admin: 04/25/18 01:32 Dose: 4 mg Pramipexole Dihydrochloride (Mirapex Tab*) 1 mg PO BEDTIME [facility] Last Admin: 04/25/18 20:45 Dose: 1 mg Pramipexole Dihydrochloride (Mirapex Tab*) 0.5 mg PO BID [facility] Last Admin: 04/25/18 20:46 Dose: 0.5 mg Pregabalin (Lyrica Cap(*)) 75 mg PO BID [facility] Last Admin: 04/25/18 20:44 Dose: 75 mg Rivastigmine Tartrate (Exelon (Nf)) 4.5 mg PO BID [facility] Last Admin: 04/25/18 20:48 Dose: 4.5 mg Sitagliptin Phosphate (Januvia (Nf)) 50 mg PO DAILY [facility] Last Admin: 04/25/18 09:13 Dose: 50 mg Tramadol HCl (Ultram*) 50 mg PO 0600,1800 [facility] Last Admin: 04/26/18 05:59 Dose: Not Given Vital Signs - 8 hr 04/26/18 04/26/18 04/26/18 04:02 05:59 08:19 Temperature 97.4 F Pulse Rate 58 Respiratory 16 18 Rate Blood Pressure 149/51 (mmHg) O2 Sat by Pulse 99 Oximetry Oxygen Devices in Use Now: None Appearance: elderly male, confused resting in bed, appears fatigued Ears/Nose/Mouth/Throat: - - dry Mucous membranes Neck: NL Appearance and Movements; NL JVP, Trachea Midline Respiratory: Symmetrical Chest Expansion and Respiratory Effort, Clear to Auscultation Cardiovascular: NL Sounds; No Murmurs; No JVD, RRR Abdominal: NL Sounds; No Tenderness; No Distention Extremities: No Clubbing, Cyanosis, - - bilat lower ext with + 1 pitting edema Skin: - - scabbed area noted to left arm and left lower leg. abrasion noted to right knee and right morrow , dressing intact Neurological: - - confused to place and time Nutrition: Taking PO's Result Diagrams: 04/26/18 05:23 04/26/18 05:23 Additional Lab and Data: Lab Results 04/24/18 04/24/18 04/24/18 Range/Units 16:25 16:25 16:25 WBC 10.9 H (3.5-10.8) 10^3/ul RBC 4.12 (4.00-5.40) 10^6/ul Hgb 12.4 L (14.0-18.0) g/dl Hct 37 L (42-52) % MCV 90 (80-94) fL MCH 30 (27-31) pg MCHC 34 (31-36) g/dl RDW 15 (10.5-15) % Plt Count 261 (150-450) 10^3/ul MPV 8.0 (7.4-10.4) um3 Neut % (Auto) 83.5 H (38-83) % Lymph % (Auto) 7.2 L (25-47) % [place] % (Auto) 5.5 (0-7) % Eos % (Auto) 3.1 (0-6) % Baso % (Auto) 0.7 (0-2) % Absolute Neuts (auto) 9.8 H (1.5-7.7) 10^3/ul Absolute Lymphs (auto) 0.8 L (1.0-4.8) 10^3/ul Absolute Monos (auto) 0.6 (0-0.8) 10^3/ul Absolute Eos (auto) 0.4 (0-0.6) 10^3/ul Absolute Basos (auto) 0.1 (0-0.2) 10^3/ul Absolute Nucleated RBC 0 10^3/ul Nucleated RBC % 0.2 Sodium 142 (135-145) mmol/L Potassium 4.6 (3.5-5.0) mmol/L Chloride 110 (101-111) mmol/L Carbon Dioxide 24 (22-32) mmol/L Anion Gap 8 (2-11) mmol/L BUN 73 H (6-24) mg/dL Creatinine 3.01 H (0.67-1.17) mg/dL Est GFR ( Amer) 24.1 (>60) Est GFR (Non-Af Amer) 19.9 (>60) BUN/Creatinine Ratio 24.3 H (8-20) Glucose 94 (70-100) mg/dL Lactic Acid 0.9 (0.5-2.0) mmol/L Calcium 8.9 (8.6-10.3) mg/dL Total Bilirubin 0.40 (0.2-1.0) mg/dL AST 22 (13-39) U/L ALT 12 (7-52) U/L Alkaline Phosphatase 57 (34-104) U/L Troponin I 0.05 H* (<0.04) ng/mL Total Protein 6.5 (6.4-8.9) g/dL Albumin 3.2 (3.2-5.2) g/dL Globulin 3.3 (2-4) g/dL Albumin/Globulin Ratio 1.0 (1-3) Assess/Plan/Problems-Billing Assessment: Mr. Kimball is a 87 y.o male with a hx of dementia , DM2, RA,HTN, HLD and RLS who presented to the emergency room with frequent falls and orthostatic vital sign at his PCP office. Patient also reported remote history of chest pain , but currently denies any chest pain. - Patient Problems (1) Falls Current Visit: Yes Status: Acute Comment: -suspect this is related to his orthostatic hypotension/ possible bradycardia - will stop metoprolol - PT/OT consult (2) HTN (hypertension) Current Visit: Yes Status: Acute Code(s): I10 - ESSENTIAL (PRIMARY) HYPERTENSION SNOMED Code(s): 58999188 Comment: patient with orthostatic hypotension -stopped lisinopril - stopped metoprolol as patient had HB this AM, transferred to ICU - cardiology consulted- pending (3) Dqkla-pp-yvjzhzr kidney injury Current Visit: Yes Status: Acute Code(s): N17.9 - ACUTE KIDNEY FAILURE, UNSPECIFIED; N18.9 - CHRONIC KIDNEY DISEASE, UNSPECIFIED SNOMED Code(s): 379414319 Comment: - lisinopril stoppped as this can contribute to his kidney injury - will avoid nephrotoxic medications - repeat BMP in the AM _ BUN/Creatinine improved today (4) Dementia Current Visit: Yes Status: Acute Code(s): F03.90 - UNSPECIFIED DEMENTIA WITHOUT BEHAVIORAL DISTURBANCE SNOMED Code(s): 69310810 Comment: supportive care (5) Diabetes Current Visit: Yes Status: Acute Code(s): E11.9 - TYPE 2 DIABETES MELLITUS WITHOUT COMPLICATIONS SNOMED Code(s): 52089359 Comment: Lispro SS Fingersticks continue Januiva (6) HLD (hyperlipidemia) Current Visit: Yes Status: Acute Code(s): E78.5 - HYPERLIPIDEMIA, UNSPECIFIED SNOMED Code(s): 96779011 Comment: Continue Lipitor (7) DVT prophylaxis Current Visit: Yes Status: Acute Code(s): KKH7347 - SNOMED Code(s): 307830410 Comment: Heparin SubQ (8) DNR (do not resuscitate) Current Visit: Yes Status: Acute Status and Disposition: inpatient - possible discharge in tomorrow
[2018-04-26] MEDS: CMCS:Rivastigmine CAP(NF) 1.5 MG CAP PO SCH ×2 (09:33→20:16)
[2018-04-26] MEDS: Pregabalin CAP(*) 25 MG PO SCH ×2 (09:33→20:09)
[2018-04-26] MEDS: LEFLUNOMIDE 10 MG PO SCH (09:33)
[2018-04-26] MEDS: Pramipexole TAB* 0.5 MG PO SCH ×3 (09:34→20:12)
--- NOTE | 2018-04-26 13:50 | CONS ---
Amended report to enter date of consultation. CARDIOLOGY CONSULTATION REPORT: DATE OF CONSULT: 04/26/2018. CONSULTING PROVIDER: Rosemary Armas NP PRIMARY MD: Dr. Dominic Layton. REASON FOR EVALUATION: 2 and 3 -degree AV block. HISTORY OF PRESENT ILLNESS: The patient has dementia and the history is obtained from the chart and from his and son at the bedside, and his admission note of 04/24/18, progress note of 04/26/18. Mr. Kimball has had 1 month of weight loss and progressive weakness and he has had orthostatic lightheadedness. He has had decreased appetite. He has not been eating or drinking according to his family. He has gotten more lightheaded and weak when standing and visiting nurses document orthostatic changes. About a week ago, his metoprolol was cut from 50 mg twice a day to 50 mg once a day. He has continued to have progressive lightheadedness and falls and was seen in the doctor's office and referred for admission. He was unable to give a history. His reports that he was told of an [place] about 24 years ago. This occurred about a month and a half after a plane trip. He had some chest pain, was seen at the hospital and according to the , was told of a heart attack, may have had a negative stress test but no catheterization. He has had no clear-cut chest pain since then. There was some mention in the admission note that perhaps he had had some mild chest discomfort a week ago, but the patient was unable to explain or clarify that issue. PAST MEDICAL HISTORY: He also has a history of diabetes, rheumatoid arthritis, hypertension, hyperlipidemia, and chronic pedal edema. Past medical history also includes dementia. No strokes, rheumatic heart disease, or murmurs. PAST SURGICAL HISTORY: Includes cataract extraction, tonsillectomy. MEDICATIONS: As an outpatient include: 1. Arava 10 mg a day. 2. Aspirin 81 mg a day. 3. Lyrica 75 mg b.i.d. 4. Melatonin 10 mg a day. 5. Simvastatin 20 mg a day. 6. Lisinopril 20 mg a day. 7. Furosemide 20 mg a day. 8. Rivastigmine 4.5 mg b.i.d. 9. Tramadol 50 mg b.i.d. p.r.n. 10. Metoprolol XL 50 mg a day, down from twice a day a week ago. 11. Mirapex 0.5 mg b.i.d. and 1 mg at bedtime. 12. Januvia 50 mg daily. As an inpatient, he has been continued on: 1. Atorvastatin 10. 2. Melatonin. 3. Lyrica. 4. Exelon. 5. Januvia. 6. Tramadol. 7. Arava. 8. Melatonin. 9. Aspirin. 10. He has been started on acetaminophen p.r.n. 11. Subcu heparin 5000 units q.8. ALLERGIES: He has no known allergies. FAMILY HISTORY: Noncontributory. SOCIAL HISTORY: He lives at home with his . He can walk a few feet with a walker. 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 He is accompanied by his son. REVIEW OF SYSTEMS: Review of systems x10 was negative except as above including denies going outdoors, having a tick bite or rash, or fevers, chills, or sweats. PHYSICAL EXAM: Blood pressure 106/70, heart rate 75, O2 sats 96% on room air. He is a well-developed, well-nourished gentleman, who opens his eyes, but does not really follow commands. Does not really respond promptly to questions. Does not know where he is, who I am, or the date. No significant JVD. Carotid are 2+ without bruits. No cervical lymphadenopathy, no thyromegaly. Unable to evaluate extraocular muscles. He does not cooperative with exam or follow instructions. Cardiac Exam: S1 and S2 somewhat distant. No clear murmurs, gallops, or rubs. Chest was clear. No CVAT. Abdomen: Bowel sounds present, nontender. No hepatosplenomegaly. Femoral pulses intact without bruits. Distal pulses intact. There was 1+ ankle edema. Negative Homans' sign. Multiple bandages on his legs where he has had lacerations from falls according to the family. DIAGNOSTIC STUDIES/LAB DATA: Labs include white of 9, hemoglobin 11.2, hematocrit of 33, platelet count of 195. potassium 3.9, bicarb of 19, BUN 45, creatinine of 1.4 down from creatinine of 3. BUN was 73 on admission, . Initial troponin was 0.05 on 04/24/18, which came down to 0.03 on 04/24/18. He did have a CT scan, which raised possibility of a hiatal hernia, possible cholelithiasis, partially undescended left testicle high in the inguinal canal, diverticulosis. Chest x-ray from 04/24/18 revealed no evidence for active cardiopulmonary disease. EKG from 04/24/18 revealed sinus rhythm and first-degree AV block, nonspecific ST-T changes, left axis deviation that is from 04/24/18. EKG from November 2010 revealed sinus rhythm with inferolateral ST depressions, first- degree AV block. IMPRESSION AND PLAN: My impression is that Mr. Kimball has multiple medical problems including dementia, history of coronary artery disease, hypertension, diabetes, hyperlipidemia, and now presents with weight loss and falls and orthostatic changes. I did discuss at length with the family the nature of his symptoms and his guarded prognosis in light of the intermittent atrioventricular block. This may be related to his beta aman or to senile conduction system disease or combination. It is unclear if it will resolve off toprol. It is also unclear whether pacemaker will improve his function or quality of life given the profound orthostatic lightheadedness, weight loss, and dehydration. We also discussed the potential for harm and injury with pacemaker implantation due to patient's noncompliance leading to lead dislodgement or infection. At this point, I would recommend the following: I suggested we continue to follow on reduced and tapering doses of beta aman. We can stop the beta aman for now, but watch for beta-aman withdrawal. We will continue hydration and evaluation for etiology of his decreased p.o. intake and weight loss. Would suggest echocardiogram to evaluate LV function. Would check a repeat troponin, certainly he is at risk for ischemia on the basis of his age and risk factors. Again, it is unclear whether he would be a candidate for evaluation or intervention given his advanced age and dementia. If he has continued heart block, we may have to reconsider the issue of pacemaker. Given his overall poor prognosis, quality of life, I would be reluctant to recommend a pacemaker unless he continues to have symptoms related to bradycardia. We will check lipid profile. Further recommendation will depend on his clinical course. I would consider reducing his statin in case of contributing to fatigue and weight loss. I agree with stopping his lisinopril. Would hold his diuretic as you are doing. [id number]/[facility] #: [id number] FRANKIE
--- NOTE | 2018-04-26 14:48 | ECHO ---
Patient: SKYLA QUIÑONEZ Rec#: [id number] : 1930 Date: 04/26/2018 Age: 87y Height: 165 cm / 65.0 in Weight: 65 kg / 143.3 lbs Sex: M BSA: 1.72 Room#: ICU 1 Admit Date#: 04/24/2018 Type: Inpatient Referring: Mohit Sharif MD Reading: Mohit Sharif MD [facility] Nurse: Carlee Fajardo,RDCS,RDMS CC: Dominic Layton MD Transthoracic Echocardiogram Indication: ABN EKG BP: 117/70 HR: 70 Rhythm: NSR Findings History: DM, HTN, HLD Technical Comments: The study quality is fair. Left Ventricle: The left ventricular chamber size is normal. Basal interventricular septum shows moderate thickening. The estimated ejection fraction is 55-60%. Abnormal left ventricular diastolic filling is observed, consistent with impaired relaxation. Left Atrium: The left atrium is mild to moderately dilated. Right Ventricle: The right ventricular chamber size and systolic function are within normal limits. The right ventricle wall thickness is mildly increased. Right Atrium: The right atrial cavity size is normal. Aortic Valve: There is no evidence of aortic valve thickening. Systolic excursion of the aortic valve is normal. There is no evidence of aortic regurgitation. There is no evidence of aortic stenosis. Mitral Valve: The mitral valve leaflets are mildly thickened. There is trace to mild mitral regurgitation. There is no evidence of mitral stenosis. Tricuspid Valve: The tricuspid valve leaflets are normal. There is trace tricuspid regurgitation. No pulmonary hypertension is noted. Pulmonic Valve: The pulmonic valve structure is not well visualized. Pericardium: There is no significant pericardial effusion. Aorta: The aortic root appears normal. The aortic arch is not well visualized. Pulmonary Artery: The main pulmonary artery is not well visualized. Venous: The inferior vena cava appears normal in size. There is less than 50% respiratory change in the inferior vena cava dimension. Conclusions Basal interventricular septum shows moderate thickening. The left atrium is mild to moderately dilated. The right ventricle wall thickness is mildly increased. There is trace to mild mitral regurgitation. The estimated ejection fraction is 55-60%. Abnormal left ventricular diastolic filling is observed, consistent with impaired relaxation. Similar to the prior study of 03/2013. Measurements Name Value Normal Range RVIDd (AP) 2D 2.5 cm (0.9 - 2.6) RVDdMajor (2D) 2.3 cm (2.2 - 4.4) RAd ISD 4CH 4.1 cm (3.4 - 4.9) RA (A4C)W 3.9 cm (2.9 - 4.6) IVSd (2D) 1.3 cm (0.6 - 1) LVPWd (2D) 1 cm (0.6 - 1) LVIDd (2D) 4.5 cm (3.6 - 5.4) LVIDs (2D) 3 cm - LV FS (2D) 34 % (25 - 45) Aortic Annulus 2 cm (1.4 - 2.6) Ao root diameter (2D) 3 cm (2.1 - 3.5) Ascending Ao 3 cm (2.1 - 3.4) Aortic arch 2.6 cm (1.8 - 3.4) LA dimension (AP) 2D 4.1 cm (2.3 - 3.8) LAd ISD 4CH 6.8 cm (2.9 - 5.3) LA ISD 4CH W 4.2 cm (2.5 - 4.5) Name Value Normal Range LA ESV BP (A/L) index 19 ml/m2 - Name Value Normal Range MV E-wave Vmax 0.5 m/sec - MV deceleration time 71 msec - MV A-wave Vmax 0.8 m/sec - MV E:A ratio 0.6 ratio - LV septal e' Vmax 0.06 m/sec - LV lateral e' Vmax 0.06 m/sec - LV E:e' septal ratio 7.5 ratio - LV E:e' lateral ratio 7.5 ratio - Name Value Normal Range AV Vmax 1 m/sec - AV VTI 23 cm - AV peak gradient 4 mmHg - AV mean gradient 2 mmHg - LVOT Vmax 0.7 m/sec - LVOT VTI 14 cm - LVOT peak gradient 2 mmHg - LVOT mean gradient 1 mmHg - FLACO Vmax 0.5 m/sec - Name Value Normal Range TR Vmax 2 m/sec - TR peak gradient 16 mmHg - RAP 3 mmHg - RVSP 19 mmHg - IVC diameter 2.1 cm - Name Value Normal Range PV Vmax 0.7 m/sec - PV peak gradient 2 mmHg -
[2018-04-27] MEDS ORDERED: Acetaminophen SUPP* 650 MG SUPP PR PRN (02:29)
[2018-04-27] MEDS ORDERED: Acetaminophen SUPP* 650 MG SUPP ONE (02:37)
[2018-04-27 03:36] LABS: ABS Basophils 0.1 10^3/ul (0-0.2); ABS Eosinophils 0.2 10^3/ul (0-0.6); ABS Lymphocytes 0.8 10^3/ul (1.0-4.8); ABS Monocytes 0.4 10^3/ul (0-0.8); ABS Neutrophils 8.1 10^3/ul (1.5-7.7); ABS Nucleated RBC 0 10^3/ul; Eosinophil % 1.8 % (0-6); Hematocrit 33 % (42-52); Hemoglobin 10.9 g/dl (14.0-18.0); Lymphocyte % 8.2 % (25-47); Mean Corpuscular HGB Conc 34 g/dl (31-36); Mean Corpuscular Hemoglobin 30 pg (27-31); Mean Corpuscular Volume 89 fL (80-94); Nucleated Red Blood Cells % 0; Platelet Count 212 10^3/ul (150-450); Red Blood Count 3.63 10^6/ul (4.00-5.40); Red Cell Distribution Width 15 % (10.5-15); White Blood Count 9.5 10^3/ul (3.5-10.8)
[2018-04-27 03:51] LABS: EGFR Non-African American 33.3 (>60)
[2018-04-27] MEDS: traMADol TAB* 50 MG PO SCH ×2 (05:57→17:13)
[2018-04-27] MEDS: Heparin VIAL(*) 5000 UNITS/ML VIAL (FIVE THOUSAND) SUBCUT SCH ×3 (05:58→21:34)
[2018-04-27] MEDS: Insulin LISPRO* 1 UNITS UNIT SUBCUT SCH ×4 (07:10→21:19)
--- NOTE | 2018-04-27 07:45 | RAD ---
INDICATION: Fever COMPARISON: April 24, 2018 TECHNIQUE: An AP portable view obtained at 0620 hours is submitted. FINDINGS: Bones/Soft Tissues: There are no acute bony findings. Cardiomediastinal: The cardiomediastinal silhouette is normal. Lungs: There are no infiltrates. Pleura: There are no pleural effusions. Other: None IMPRESSION: NO ACTIVE DISEASE.
[2018-04-27] MEDS: Pregabalin CAP(*) 25 MG PO SCH ×2 (09:40→21:32)
[2018-04-27] MEDS: Aspirin EC TAB* 81 MG TAB.EC PO SCH (09:40)
[2018-04-27] MEDS: Pramipexole TAB* 0.5 MG PO SCH ×3 (09:40→21:32)
[2018-04-27] MEDS: LEFLUNOMIDE 10 MG PO SCH (09:40)
[2018-04-27] MEDS: CMCS:SitaGLIPtin (NF) 25 MG TAB PO SCH (09:40)
[2018-04-27] MEDS: CMCS:Rivastigmine CAP(NF) 1.5 MG CAP PO SCH ×2 (09:40→21:34)
--- NOTE | 2018-04-27 09:51 | PN ---
Subjective Date of Service: 04/27/18 Interval History: Continues to some pauses on the monitor asymptomatic. Fever overnight T max 100.7, blood cultures pending, Cxr was negative for acute process. Denies chest pain or shortness of breath, Denies abd pain n/v/d. remains confused to place and time. Family History: Unchanged from Admission Social History: Unchanged from Admission Past Medical History: Unchanged from Admission Objective Active Medications: Acetaminophen (Tylenol Supp*) 650 mg [place] Q6H PRN PRN Reason: FEVER/PAIN Aspirin (Aspirin Ec Tab*) 81 mg PO DAILY [facility] Last Admin: 04/26/18 09:32 Dose: 81 mg Docusate Sodium (Colace Cap*) 100 mg PO BID [facility] Last Admin: 04/26/18 20:08 Dose: 100 mg Heparin Sodium (Porcine) (Heparin Vial(*)) 5,000 units SUBCUT Q8HR [facility] Last Admin: 04/27/18 05:58 Dose: 5,000 units Insulin Human Lispro (Humalog*) 0 units SUBCUT ACHS [facility]; Protocol Last Admin: 04/26/18 20:27 Dose: Not Given Leflunomide (Arava (Nf)) 10 mg PO DAILY [facility]; Protocol Last Admin: 04/26/18 09:33 Dose: 10 mg Melatonin (Melatonin) 3 mg PO BEDTIME PRN; Protocol PRN Reason: Sleep Last Admin: 04/25/18 01:32 Dose: 3 mg Ondansetron HCl (Zofran Odt Tab*) 4 mg PO Q6H PRN PRN Reason: n/v Last Admin: 04/25/18 01:32 Dose: 4 mg Pramipexole Dihydrochloride (Mirapex Tab*) 1 mg PO BEDTIME [facility] Last Admin: 04/26/18 20:11 Dose: 1 mg Pramipexole Dihydrochloride (Mirapex Tab*) 0.5 mg PO BID [facility] Last Admin: 04/26/18 20:12 Dose: 0.5 mg Pregabalin (Lyrica Cap(*)) 75 mg PO BID [facility] Last Admin: 04/26/18 20:09 Dose: 75 mg Rivastigmine Tartrate (Exelon (Nf)) 4.5 mg PO BID [facility] Last Admin: 04/26/18 20:16 Dose: 4.5 mg Sitagliptin Phosphate (Januvia (Nf)) 50 mg PO DAILY [facility] Last Admin: 04/26/18 09:32 Dose: 50 mg Tramadol HCl (Ultram*) 50 mg PO 0600,1800 [facility] Last Admin: 04/27/18 05:57 Dose: Not Given Vital Signs - 8 hr 04/27/18 04/27/18 04/27/18 02:00 02:01 02:31 Temperature Pulse Rate 74 76 78 Respiratory 29 34 25 Rate Blood Pressure 97/47 119/51 (mmHg) O2 Sat by Pulse 93 93 95 Oximetry 04/27/18 04/27/18 04/27/18 03:00 03:01 03:31 Temperature Pulse Rate 76 69 80 Respiratory 26 29 30 Rate Blood Pressure 145/48 121/45 (mmHg) O2 Sat by Pulse 92 96 95 Oximetry 04/27/18 04/27/18 04/27/18 04:00 04:01 04:31 Temperature 100.7 F Pulse Rate 79 78 76 Respiratory 20 26 27 Rate Blood Pressure 120/46 120/52 (mmHg) O2 Sat by Pulse 96 95 94 Oximetry 04/27/18 04/27/18 04/27/18 05:00 05:01 05:31 Temperature Pulse Rate 76 78 76 Respiratory 24 25 25 Rate Blood Pressure 96/60 130/51 (mmHg) O2 Sat by Pulse 94 95 97 Oximetry 04/27/18 04/27/18 06:00 06:01 Temperature Pulse Rate 67 71 Respiratory 25 20 Rate Blood Pressure 132/59 (mmHg) O2 Sat by Pulse 96 96 Oximetry Oxygen Devices in Use Now: None Appearance: Alert to verbal, No acute distress, confused Eyes: No Scleral Icterus Ears/Nose/Mouth/Throat: Clear Oropharnyx, Mucous Membranes Moist Neck: NL Appearance and Movements; NL JVP, Trachea Midline Respiratory: Symmetrical Chest Expansion and Respiratory Effort, Clear to Auscultation Cardiovascular: NL Sounds; No Murmurs; No JVD, No Edema Abdominal: NL Sounds; No Tenderness; No Distention, - - NO pain with palpation, BS pos. x4 Extremities: No Edema, No Clubbing, Cyanosis Skin: - - abrasion to bilat shins, dressing intact , scabbed areas noted to lower ext and bilat arms. Neurological: - - confused to palce and time , repsonds to name. Nutrition: Taking PO's Result Diagrams: 04/27/18 03:20 04/27/18 03:20 Additional Lab and Data: Lab Results 04/24/18 04/24/18 04/24/18 Range/Units 16:25 16:25 16:25 WBC 10.9 H (3.5-10.8) 10^3/ul RBC 4.12 (4.00-5.40) 10^6/ul Hgb 12.4 L (14.0-18.0) g/dl Hct 37 L (42-52) % MCV 90 (80-94) fL MCH 30 (27-31) pg MCHC 34 (31-36) g/dl RDW 15 (10.5-15) % Plt Count 261 (150-450) 10^3/ul MPV 8.0 (7.4-10.4) um3 Neut % (Auto) 83.5 H (38-83) % Lymph % (Auto) 7.2 L (25-47) % [place] % (Auto) 5.5 (0-7) % Eos % (Auto) 3.1 (0-6) % Baso % (Auto) 0.7 (0-2) % Absolute Neuts (auto) 9.8 H (1.5-7.7) 10^3/ul Absolute Lymphs (auto) 0.8 L (1.0-4.8) 10^3/ul Absolute Monos (auto) 0.6 (0-0.8) 10^3/ul Absolute Eos (auto) 0.4 (0-0.6) 10^3/ul Absolute Basos (auto) 0.1 (0-0.2) 10^3/ul Absolute Nucleated RBC 0 10^3/ul Nucleated RBC % 0.2 Sodium 142 (135-145) mmol/L Potassium 4.6 (3.5-5.0) mmol/L Chloride 110 (101-111) mmol/L Carbon Dioxide 24 (22-32) mmol/L Anion Gap 8 (2-11) mmol/L BUN 73 H (6-24) mg/dL Creatinine 3.01 H (0.67-1.17) mg/dL Est GFR ( Amer) 24.1 (>60) Est GFR (Non-Af Amer) 19.9 (>60) BUN/Creatinine Ratio 24.3 H (8-20) Glucose 94 (70-100) mg/dL Lactic Acid 0.9 (0.5-2.0) mmol/L Calcium 8.9 (8.6-10.3) mg/dL Total Bilirubin 0.40 (0.2-1.0) mg/dL AST 22 (13-39) U/L ALT 12 (7-52) U/L Alkaline Phosphatase 57 (34-104) U/L Troponin I 0.05 H* (<0.04) ng/mL Total Protein 6.5 (6.4-8.9) g/dL Albumin 3.2 (3.2-5.2) g/dL Globulin 3.3 (2-4) g/dL Albumin/Globulin Ratio 1.0 (1-3) Microbiology and Other Data: Microbiology 04/26/18 04:40 Urine Culture - Final Urine No Growth (<1,000 CFU/mL) Assess/Plan/Problems-Billing Assessment: Mr. Kimball is a 87 y.o male with a hx of dementia , DM2, RA,HTN, HLD and RLS who presented to the emergency room with frequent falls and orthostatic vital sign at his PCP office. Patient also reported remote history of chest pain , but currently denies any chest pain. - Patient Problems (1) Falls Current Visit: Yes Status: Acute Comment: -suspect this is related to his orthostatic hypotension/ bradycardia - metoprolol stopped yesterday - PT/OT consult - could be related to poor PO intake (2) Bradycardia Current Visit: Yes Status: Acute Code(s): R00.1 - BRADYCARDIA, UNSPECIFIED SNOMED Code(s): 53661935 Comment: Patient with episode of bradycardia yesterday - metoprolol stopped - will continue to monitor - suspect this could be related to his recent falls at home. - echo EF 55-60% (3) HTN (hypertension) Current Visit: Yes Status: Acute Code(s): I10 - ESSENTIAL (PRIMARY) HYPERTENSION SNOMED Code(s): 42708036 Comment: patient with orthostatic hypotension- will repeat orthostatic vital signs today- patient became bradycardic when standing - asymptomatic -stopped lisinopril - stopped metoprolol - cardiology consulted- recommended holding metoprolol for now, lipid profile, holding lasix and stopping lisinopril (4) Gostp-[id number] kidney injury Current Visit: Yes Status: Acute Code(s): N17.9 - ACUTE KIDNEY FAILURE, UNSPECIFIED; N18.9 - CHRONIC KIDNEY DISEASE, UNSPECIFIED SNOMED Code(s): 977468532 Comment: - lisinopril stoppped as this can contribute to his kidney injury - will avoid nephrotoxic medications - BUN/Creatinine improving - repeat BMP in the AM _ BUN/Creatinine improved today (5) Dementia Current Visit: Yes Status: Acute Code(s): F03.90 - UNSPECIFIED DEMENTIA WITHOUT BEHAVIORAL DISTURBANCE SNOMED Code(s): 93096864 Comment: supportive care (6) Diabetes Current Visit: Yes Status: Acute Code(s): E11.9 - TYPE 2 DIABETES MELLITUS WITHOUT COMPLICATIONS SNOMED Code(s): 02898439 Comment: Lispro SS Fingersticks continue Januiva (7) HLD (hyperlipidemia) Current Visit: Yes Status: Acute Code(s): E78.5 - HYPERLIPIDEMIA, UNSPECIFIED SNOMED Code(s): 13226639 Comment: Continue Lipitor (8) DVT prophylaxis Current Visit: Yes Status: Acute Code(s): CAY7025 - SNOMED Code(s): 492199217 Comment: Heparin SubQ (9) DNR (do not resuscitate) Current Visit: Yes Status: Acute Status and Disposition: inpatient
[2018-04-27] MEDS ORDERED: Atropine SYRINGE* 0.1 MG/ML 10 ML SYRINGE (1 MG) ONE (16:22)
[2018-04-27] MEDS: Docusate CAP* 100 MG PO SCH ×2 (16:32→21:29)
[2018-04-27] MEDS ORDERED: Atropine SYRINGE* 0.1 MG/ML 10 ML SYRINGE (1 MG) IV PRN (20:16)
[2018-04-27] MEDS: Melatonin 3 MG TAB PO PRN (21:34)
[2018-04-28] MEDS: traMADol TAB* 50 MG PO SCH ×2 (05:34→17:41)
[2018-04-28] MEDS: Heparin VIAL(*) 5000 UNITS/ML VIAL (FIVE THOUSAND) SUBCUT SCH ×3 (05:34→22:19)
[2018-04-28] MEDS ORDERED: Succinylcholine* 20 MG/ML 10 ML VIAL ONE (05:55)
[2018-04-28 05:59] LABS: ABS Basophils 0.1 10^3/ul (0-0.2); ABS Eosinophils 0.2 10^3/ul (0-0.6); ABS Lymphocytes 0.8 10^3/ul (1.0-4.8); ABS Monocytes 0.4 10^3/ul (0-0.8); ABS Neutrophils 6.4 10^3/ul (1.5-7.7); ABS Nucleated RBC 0 10^3/ul; Eosinophil % 2.3 % (0-6); Hematocrit 34 % (42-52); Hemoglobin 11.2 g/dl (14.0-18.0); Lymphocyte % 10.5 % (25-47); Mean Corpuscular HGB Conc 33 g/dl (31-36); Mean Corpuscular Hemoglobin 30 pg (27-31); Mean Corpuscular Volume 89 fL (80-94); Nucleated Red Blood Cells % 0; Platelet Count 194 10^3/ul (150-450); Red Blood Count 3.79 10^6/ul (4.00-5.40); Red Cell Distribution Width 15 % (10.5-15); White Blood Count 7.9 10^3/ul (3.5-10.8)
[2018-04-28 06:17] LABS: EGFR Non-African American 31.7 (>60)
[2018-04-28] MEDS: Insulin LISPRO* 1 UNITS UNIT SUBCUT SCH ×4 (07:26→21:58)
[2018-04-28] MEDS ORDERED: NS 0.9% 1000 ML* 1,000 ML IV SCH (09:00)
--- NOTE | 2018-04-28 09:17 | PN ---
Subjective Date of Service: 04/28/18 Interval History: Mr. Kimball awakens to voice and denies any complaint. He easily drifts off to sleep. 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 He does not appear to be in any acute distress. Note is made of the report that patient had significant bradycardia and hypotension, when he stood at edge of bed with nursing staff to facilitate urination yesterday. Now with juárez. Family History: Unchanged from Admission Social History: Unchanged from Admission Past Medical History: Unchanged from Admission Objective Active Medications: Acetaminophen (Tylenol Supp*) 650 mg [place] Q6H PRN Aspirin (Aspirin Ec Tab*) 81 mg PO DAILY [facility] Atropine Sulfate (Atropine Syringe*) 0.5 mg IV ONCE PRN Docusate Sodium (Colace Cap*) 100 mg PO BID [facility] Heparin Sodium (Porcine) (Heparin Vial(*)) 5,000 units SUBCUT Q8HR [facility] Sodium Chloride (Ns 0.9% 1000 Ml*) 1,000 mls @ 150 mls/hr IV PER RATE [facility] Insulin Human Lispro (Humalog*) 0 units SUBCUT ACHS [facility]; Protocol Leflunomide (Arava (Nf)) 10 mg PO DAILY [facility]; Protocol Melatonin (Melatonin) 3 mg PO BEDTIME [facility]N; Protocol Ondansetron HCl (Zofran Odt Tab*) 4 mg PO Q6H PRN Pregabalin (Lyrica Cap(*)) 75 mg PO BID [facility] Sitagliptin Phosphate (Januvia (Nf)) 50 mg PO DAILY [facility] Tramadol HCl (Ultram*) 50 mg PO 0600,1800 [facility] Vital Signs: Temp Pulse Resp BP Pulse Ox 100.1 F 57 30 104/46 99 04/28/18 08:00 04/28/18 09:00 04/28/18 09:00 04/28/18 09:00 04/28/18 09:00 Oxygen Devices in Use Now: Nasal Cannula Appearance: Male lying in bed in NAD, sleeping Eyes: No Scleral Icterus Ears/Nose/Mouth/Throat: Mucous Membranes Moist Neck: Trachea Midline Respiratory: Symmetrical Chest Expansion and Respiratory Effort, Clear to Auscultation Cardiovascular: NL Sounds; No Murmurs; No JVD, No Edema Abdominal: NL Sounds; No Tenderness; No Distention Lymphatic: No Cervical Adenopathy Extremities: No Edema Skin: No Rash or Ulcers Neurological: - - Sleeping, awakens to voice easily but drifts off to sleep, follows commands, oriented to self only, +3 strength in extremities. Nutrition: Taking PO's Result Diagrams: 04/28/18 05:51 04/28/18 05:51 Assess/Plan/Problems-Billing Assessment: Mr. Kimball is a 87 y.o male with a hx of dementia , DM2, RA, HTN, and HLD who presented to the emergency room with frequent falls after being found to have orthostatic vital signs at his PCP office and bradycardia in ED. - Patient Problems (1) Bradycardia Comment: - Persistent bradycardia with relative hypotension and orthostasis. - Appreciate cardiology input, metoprolol held. Also held exelon and pramipexole as can cause bradycardia. EF 50-55%. - Extensive discussions with family about goals of care and low value of pacemaker given multifactorial problems with advanced dementia and poor oral intake, patient's does not want to pursue a pacemaker at this time. - Likely cause of recent falls at home. (2) Afib Comment: - New afib, bradycardic. - Patient not a candidate for anticoagulation due to multiple recent falls. (3) Dmbdj-hs-ubczomn kidney injury Comment: - At baseline. - Lisinopril held, avoid nephrotoxic medications. (4) Dementia Comment: - Previously provided 24 hour care at home. 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 - Steady decline recently, refuses food, 17 lb weight loss. (5) Diabetes Comment: - BGs well controlled. - Continue BGs q AC with lispro SSI - Hold sitagliptan. (6) HTN (hypertension) Comment: - Now with hypotension and bradycardia as per above. (7) HLD (hyperlipidemia) Comment: - Continue Lipitor (8) DVT prophylaxis Comment: - Heparin SubQ (9) DNR (do not resuscitate) Comment: Status and Disposition: Inpatient. Discussed goals of care with and family, aware of grim prognosis. Would like to consider [facility] if possible. Patient's not able to care for him if he cannot walk, do not have funds for aide coverage at this time. May need NH placement.
[2018-04-28] MEDS: Aspirin EC TAB* 81 MG TAB.EC PO SCH (10:38)
[2018-04-28] MEDS: LEFLUNOMIDE 10 MG PO SCH (10:39)
[2018-04-28] MEDS: Docusate CAP* 100 MG PO SCH ×2 (10:42→22:18)
[2018-04-28] MEDS: CMCS:SitaGLIPtin (NF) 25 MG TAB PO SCH (10:42)
[2018-04-28] MEDS: Pregabalin CAP(*) 25 MG PO SCH ×2 (10:42→22:18)
[2018-04-28] MEDS ORDERED: NS 0.9% 500 ML* 500 ML IV ONE (11:26)
--- NOTE | 2018-04-28 19:22 | PN ---
Subjective Date of Service: 04/28/18 Interval History: Spoke with family about pt's poor prognosis and the clinical spectrum of what this means, where some patient's prognosis can range for a few days to a few months. We discussed hospital and ICU policy with pt's RN. Unfortunately, patient's family is adamant about their request to stay in the ICU. However, they also understand that if another patient will be admitted to the ICU, that he will need to be re-triaged to the appropriate floor. The family understands and agrees with the above plan. Spoke with Dr. Duval and will defer for any subsequent decisions and needs at night. Family History: Unchanged from Admission Social History: Unchanged from Admission Past Medical History: Unchanged from Admission Objective Active Medications: Acetaminophen (Tylenol Supp*) 650 mg [place] Q6H PRN PRN Reason: FEVER/PAIN Aspirin (Aspirin Ec Tab*) 81 mg PO DAILY [facility] Last Admin: 04/28/18 10:38 Dose: 81 mg Atropine Sulfate (Atropine Syringe*) 0.5 mg IV ONCE PRN PRN Reason: SEE COMMENTS Docusate Sodium (Colace Cap*) 100 mg PO BID [facility] Last Admin: 04/28/18 10:42 Dose: Not Given Heparin Sodium (Porcine) (Heparin Vial(*)) 5,000 units SUBCUT Q8HR [facility] Last Admin: 04/28/18 14:30 Dose: 5,000 units Insulin Human Lispro (Humalog*) 0 units SUBCUT ACHS [facility]; Protocol Last Admin: 04/28/18 17:41 Dose: Not Given Leflunomide (Arava (Nf)) 10 mg PO DAILY [facility]; Protocol Last Admin: 04/28/18 10:39 Dose: 10 mg Melatonin (Melatonin) 3 mg PO BEDTIME PRN; Protocol PRN Reason: Sleep Last Admin: 04/27/18 21:34 Dose: 3 mg Ondansetron HCl (Zofran Odt Tab*) 4 mg PO Q6H PRN PRN Reason: n/v Last Admin: 04/25/18 01:32 Dose: 4 mg Pregabalin (Lyrica Cap(*)) 75 mg PO BID [facility] Last Admin: 04/28/18 10:42 Dose: Not Given Tramadol HCl (Ultram*) 50 mg PO 0600,1800 [facility] Last Admin: 07/28/18 17:41 Dose: Not Given Vital Signs - 8 hr 04/28/18 04/28/18 04/28/18 12:00 12:15 13:00 Temperature 98.6 F Pulse Rate 48 Respiratory 25 21 Rate Blood Pressure 106/79 124/51 (mmHg) O2 Sat by Pulse 96 Oximetry 04/28/18 04/28/18 04/28/18 14:00 14:01 15:00 Temperature Pulse Rate 51 49 77 Respiratory 30 22 21 Rate Blood Pressure 120/46 (mmHg) O2 Sat by Pulse 96 87 99 Oximetry 04/28/18 04/28/18 04/28/18 15:01 15:53 16:00 Temperature 98.1 F Pulse Rate 78 56 Respiratory 21 27 Rate Blood Pressure 115/50 (mmHg) O2 Sat by Pulse 98 98 Oximetry 04/28/18 04/28/18 04/28/18 16:01 17:00 17:01 Temperature Pulse Rate 65 55 60 Respiratory 21 23 23 Rate Blood Pressure 111/63 90/50 (mmHg) O2 Sat by Pulse 96 97 98 Oximetry 04/28/18 04/28/18 18:00 18:01 Temperature Pulse Rate 47 55 Respiratory 19 25 Rate Blood Pressure 112/47 (mmHg) O2 Sat by Pulse 97 98 Oximetry Oxygen Devices in Use Now: Nasal Cannula Result Diagrams: 04/28/18 05:51 04/28/18 05:51 Additional Lab and Data: Lab Results 04/24/18 04/24/18 04/24/18 Range/Units 16:25 16:25 16:25 WBC 10.9 H (3.5-10.8) 10^3/ul RBC 4.12 (4.00-5.40) 10^6/ul Hgb 12.4 L (14.0-18.0) g/dl Hct 37 L (42-52) % MCV 90 (80-94) fL MCH 30 (27-31) pg MCHC 34 (31-36) g/dl RDW 15 (10.5-15) % Plt Count 261 (150-450) 10^3/ul MPV 8.0 (7.4-10.4) um3 Neut % (Auto) 83.5 H (38-83) % Lymph % (Auto) 7.2 L (25-47) % [place] % (Auto) 5.5 (0-7) % Eos % (Auto) 3.1 (0-6) % Baso % (Auto) 0.7 (0-2) % Absolute Neuts (auto) 9.8 H (1.5-7.7) 10^3/ul Absolute Lymphs (auto) 0.8 L (1.0-4.8) 10^3/ul Absolute Monos (auto) 0.6 (0-0.8) 10^3/ul Absolute Eos (auto) 0.4 (0-0.6) 10^3/ul Absolute Basos (auto) 0.1 (0-0.2) 10^3/ul Absolute Nucleated RBC 0 10^3/ul Nucleated RBC % 0.2 Sodium 142 (135-145) mmol/L Potassium 4.6 (3.5-5.0) mmol/L Chloride 110 (101-111) mmol/L Carbon Dioxide 24 (22-32) mmol/L Anion Gap 8 (2-11) mmol/L BUN 73 H (6-24) mg/dL Creatinine 3.01 H (0.67-1.17) mg/dL Est GFR ( Amer) 24.1 (>60) Est GFR (Non-Af Amer) 19.9 (>60) BUN/Creatinine Ratio 24.3 H (8-20) Glucose 94 (70-100) mg/dL Lactic Acid 0.9 (0.5-2.0) mmol/L Calcium 8.9 (8.6-10.3) mg/dL Total Bilirubin 0.40 (0.2-1.0) mg/dL AST 22 (13-39) U/L ALT 12 (7-52) U/L Alkaline Phosphatase 57 (34-104) U/L Troponin I 0.05 H* (<0.04) ng/mL Total Protein 6.5 (6.4-8.9) g/dL Albumin 3.2 (3.2-5.2) g/dL Globulin 3.3 (2-4) g/dL Albumin/Globulin Ratio 1.0 (1-3) Microbiology and Other Data: Microbiology 04/26/18 04:40 Urine Culture - Final Urine No Growth (<1,000 CFU/mL) Assess/Plan/Problems-Billing Assessment: Mr. Kimball is a 87 y.o male with a hx of dementia , DM2, RA, HTN, and HLD who presented to the emergency room with frequent falls after being found to have orthostatic vital signs at his PCP office and bradycardia in ED. Status and Disposition: Inpatient. Discussed goals of care with and family, aware of grim prognosis. Would like to consider [facility]. Patient's not able to care for him if he cannot walk, do not have funds for aide coverage at this time. May need NH placement.
[2018-04-29] MEDS: Heparin VIAL(*) 5000 UNITS/ML VIAL (FIVE THOUSAND) SUBCUT SCH ×3 (05:59→21:11)
[2018-04-29] MEDS: traMADol TAB* 50 MG PO SCH ×2 (05:59→18:25)
[2018-04-29] MEDS: Insulin LISPRO* 1 UNITS UNIT SUBCUT SCH ×4 (08:20→21:10)
[2018-04-29] MEDS: Aspirin EC TAB* 81 MG TAB.EC PO SCH (09:46)
[2018-04-29] MEDS: Docusate CAP* 100 MG PO SCH ×2 (09:46→21:10)
[2018-04-29] MEDS: Pregabalin CAP(*) 25 MG PO SCH ×2 (09:46→21:07)
[2018-04-29] MEDS: LEFLUNOMIDE 10 MG PO SCH (09:46)
--- NOTE | 2018-04-29 11:19 | PN ---
Subjective Date of Service: 04/29/18 Interval History: Mr. Kimball reports feeling quite well today and denies complaint. He specifically denies chest pain, SOB, nausea, or abdominal pain. Family History: Unchanged from Admission Social History: Unchanged from Admission Past Medical History: Unchanged from Admission Objective Active Medications: Acetaminophen (Tylenol Supp*) 650 mg [place] Q6H PRN Aspirin (Aspirin Ec Tab*) 81 mg PO DAILY [facility] Atropine Sulfate (Atropine Syringe*) 0.5 mg IV ONCE PRN Docusate Sodium (Colace Cap*) 100 mg PO BID [facility] Heparin Sodium (Porcine) (Heparin Vial(*)) 5,000 units SUBCUT Q8HR [facility] Insulin Human Lispro (Humalog*) 0 units SUBCUT ACHS [facility]ATH[facility]; Protocol Leflunomide (Arava (Nf)) 10 mg PO DAILY [facility]; Protocol Melatonin (Melatonin) 3 mg PO BEDTIME PRN; Protocol Ondansetron HCl (Zofran Odt Tab*) 4 mg PO Q6H PRN Pregabalin (Lyrica Cap(*)) 75 mg PO BID [facility] Tramadol HCl (Ultram*) 50 mg PO 0600,1800 [facility] Vital Signs: Temp Pulse Resp BP Pulse Ox 98.0 F 84 20 108/51 99 04/29/18 07:30 04/29/18 07:30 04/29/18 09:46 04/29/18 07:30 04/29/18 07:30 Oxygen Devices in Use Now: Nasal Cannula Appearance: Male lying in bed in NAD Eyes: No Scleral Icterus Ears/Nose/Mouth/Throat: Mucous Membranes Moist Neck: Trachea Midline Respiratory: Symmetrical Chest Expansion and Respiratory Effort, Clear to Auscultation Cardiovascular: NL Sounds; No Murmurs; No JVD, No Edema Abdominal: NL Sounds; No Tenderness; No Distention Lymphatic: No Cervical Adenopathy Extremities: No Edema Neurological: - - Much more alert today, oriented to self, strength improved, + 4 throughout Nutrition: Taking PO's Result Diagrams: 04/28/18 05:51 04/28/18 05:51 Assess/Plan/Problems-Billing Assessment: Mr. Kimball is a 87 y.o male with a hx of dementia , DM2, RA, HTN, and HLD who presented to the emergency room with frequent falls after being found to have orthostatic vital signs at his PCP office and bradycardia in ED. - Patient Problems (1) Bradycardia Comment: - Bradycardia improved this AM, mostly in SR with HR in 80s, some second degree block noted. - Appreciate cardiology input, metoprolol, exelon and pramipexole held as can cause bradycardia. EF 50-55%. - Extensive discussions with family about goals of care and low value of pacemaker given multifactorial problems with advanced dementia and poor oral intake, patient's does not want to pursue a pacemaker at this time. - Likely cause of recent falls at home. (2) Orthostatic hypotension Comment: - Orthostasis on attempt to stand on 04/27/18, in setting of significant bradycardia. - Plan to recheck today if patient able to stand, though significantly deconditioned. (3) Afib Comment: - SR this AM. - New afib this admission, bradycardic. - Patient not a candidate for anticoagulation due to multiple recent falls. (4) Ydoyl-sp-tqfrsth kidney injury Comment: - At baseline. - Lisinopril held, avoid nephrotoxic medications. (5) Dementia Comment: - Previously provided 24 hour care at home. 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 - Steady decline recently, refuses food, 17 lb weight loss. (6) Diabetes Comment: - BGs well controlled. - Continue BGs q AC with lispro SSI - Hold sitagliptan. (7) HTN (hypertension) Comment: - Now with hypotension and bradycardia as per above. (8) HLD (hyperlipidemia) Comment: - Continue Lipitor (9) DVT prophylaxis Comment: - Heparin SubQ (10) DNR (do not resuscitate) Comment: Status and Disposition: Inpatient. Discussed goals of care with and family, aware of grim prognosis due to advanced dementia with poor oral intake and weight loss. [facility] like [facility]. Patient is significantly weak and deconditioned, plan for PT eval. Patient's not able to care for him if he cannot walk, do not have funds for aide coverage at this time. May need NH placement.
[2018-04-30] MEDS: traMADol TAB* 50 MG PO SCH ×2 (05:46→18:10)
[2018-04-30] MEDS: Heparin VIAL(*) 5000 UNITS/ML VIAL (FIVE THOUSAND) SUBCUT SCH ×3 (05:46→21:40)
[2018-04-30 06:20] LABS: Urine Appearance Cloudy; Urine Blood 3+ (Negative); Urine Color Yellow; Urine Ketones Negative (Negative); Urine Protein 1+(30 mg/dL) (Negative); Urine Red Blood Cell 3+(>10/hpf) (Absent); Urine Specific Gravity 1.014 (1.010-1.030); Urine Urobilinogen Negative (Negative); Urine White Blood Cell 1+(6-10/hpf) (Absent)
[2018-04-30] MEDS: Insulin LISPRO* 1 UNITS UNIT SUBCUT SCH ×4 (08:27→21:40)
[2018-04-30] MEDS: LEFLUNOMIDE 10 MG PO SCH (08:39)
[2018-04-30] MEDS: Docusate CAP* 100 MG PO SCH ×2 (08:39→21:42)
[2018-04-30] MEDS: Aspirin EC TAB* 81 MG TAB.EC PO SCH (08:39)
[2018-04-30] MEDS: Pregabalin CAP(*) 25 MG PO SCH ×2 (08:40→21:42)
--- NOTE | 2018-04-30 14:34 | PN ---
Subjective Date of Service: 04/30/18 Interval History: Confused, more alert today, denies chest pain or shortness of breath. Denies abd pain n/v/d. Continues to discuss irrelevant things when asked questions. Family History: Unchanged from Admission Social History: Unchanged from Admission Past Medical History: Unchanged from Admission Objective Active Medications: Acetaminophen (Tylenol Supp*) 650 mg [place] Q6H PRN PRN Reason: FEVER/PAIN Aspirin (Aspirin Ec Tab*) 81 mg PO DAILY [facility] Last Admin: 04/30/18 08:39 Dose: 81 mg Atropine Sulfate (Atropine Syringe*) 0.5 mg IV ONCE PRN PRN Reason: SEE COMMENTS Docusate Sodium (Colace Cap*) 100 mg PO BID [facility] Last Admin: 04/30/18 08:39 Dose: 100 mg Heparin Sodium (Porcine) (Heparin Vial(*)) 5,000 units SUBCUT Q8HR [facility] Last Admin: 04/30/18 14:03 Dose: 5,000 units Insulin Human Lispro (Humalog*) 0 units SUBCUT ACHS [facility]; Protocol Last Admin: 04/30/18 11:43 Dose: Not Given Leflunomide (Arava (Nf)) 10 mg PO DAILY [facility]; Protocol Last Admin: 04/30/18 08:39 Dose: 10 mg Melatonin (Melatonin) 3 mg PO BEDTIME PRN; Protocol PRN Reason: Sleep Last Admin: 04/27/18 21:34 Dose: 3 mg Ondansetron HCl (Zofran Odt Tab*) 4 mg PO Q6H PRN PRN Reason: n/v Last Admin: 04/25/18 01:32 Dose: 4 mg Pregabalin (Lyrica Cap(*)) 75 mg PO BID [facility] Last Admin: 04/30/18 08:40 Dose: 75 mg Tramadol HCl (Ultram*) 50 mg PO 0600,1800 [facility] Last Admin: 04/30/18 05:46 Dose: 50 mg Vital Signs - 8 hr 04/30/18 04/30/18 04/30/18 07:46 08:00 08:40 Temperature 97.4 F Pulse Rate 73 Respiratory 20 16 16 Rate Blood Pressure 139/67 (mmHg) O2 Sat by Pulse 100 Oximetry 04/30/18 04/30/18 04/30/18 09:15 10:38 11:23 Temperature 97.6 F Pulse Rate 75 Respiratory 16 16 16 Rate Blood Pressure 108/59 (mmHg) O2 Sat by Pulse 98 Oximetry Oxygen Devices in Use Now: Nasal Cannula Appearance: elderly male appears comfortable resting in bed, no acute distress Eyes: No Scleral Icterus Ears/Nose/Mouth/Throat: Clear Oropharnyx, Mucous Membranes Moist Neck: NL Appearance and Movements; NL JVP, Trachea Midline Respiratory: Symmetrical Chest Expansion and Respiratory Effort, Clear to Auscultation Cardiovascular: NL Sounds; No Murmurs; No JVD, No Edema Abdominal: NL Sounds; No Tenderness; No Distention Extremities: No Edema, No Clubbing, Cyanosis Skin: No Rash or Ulcers, No Nodules or Sclerosis Neurological: - - oriented to self, confused to place and time. Result Diagrams: 04/28/18 05:51 04/28/18 05:51 Additional Lab and Data: Lab Results 04/24/18 04/24/18 04/24/18 Range/Units 16:25 16:25 16:25 WBC 10.9 H (3.5-10.8) 10^3/ul RBC 4.12 (4.00-5.40) 10^6/ul Hgb 12.4 L (14.0-18.0) g/dl Hct 37 L (42-52) % MCV 90 (80-94) fL MCH 30 (27-31) pg MCHC 34 (31-36) g/dl RDW 15 (10.5-15) % Plt Count 261 (150-450) 10^3/ul MPV 8.0 (7.4-10.4) um3 Neut % (Auto) 83.5 H (38-83) % Lymph % (Auto) 7.2 L (25-47) % [place] % (Auto) 5.5 (0-7) % Eos % (Auto) 3.1 (0-6) % Baso % (Auto) 0.7 (0-2) % Absolute Neuts (auto) 9.8 H (1.5-7.7) 10^3/ul Absolute Lymphs (auto) 0.8 L (1.0-4.8) 10^3/ul Absolute Monos (auto) 0.6 (0-0.8) 10^3/ul Absolute Eos (auto) 0.4 (0-0.6) 10^3/ul Absolute Basos (auto) 0.1 (0-0.2) 10^3/ul Absolute Nucleated RBC 0 10^3/ul Nucleated RBC % 0.2 Sodium 142 (135-145) mmol/L Potassium 4.6 (3.5-5.0) mmol/L Chloride 110 (101-111) mmol/L Carbon Dioxide 24 (22-32) mmol/L Anion Gap 8 (2-11) mmol/L BUN 73 H (6-24) mg/dL Creatinine 3.01 H (0.67-1.17) mg/dL Est GFR ( Amer) 24.1 (>60) Est GFR (Non-Af Amer) 19.9 (>60) BUN/Creatinine Ratio 24.3 H (8-20) Glucose 94 (70-100) mg/dL Lactic Acid 0.9 (0.5-2.0) mmol/L Calcium 8.9 (8.6-10.3) mg/dL Total Bilirubin 0.40 (0.2-1.0) mg/dL AST 22 (13-39) U/L ALT 12 (7-52) U/L Alkaline Phosphatase 57 (34-104) U/L Troponin I 0.05 H* (<0.04) ng/mL Total Protein 6.5 (6.4-8.9) g/dL Albumin 3.2 (3.2-5.2) g/dL Globulin 3.3 (2-4) g/dL Albumin/Globulin Ratio 1.0 (1-3) Microbiology and Other Data: Microbiology 04/26/18 04:40 Urine Culture - Final Urine No Growth (<1,000 CFU/mL) Assess/Plan/Problems-Billing Assessment: Mr. Kimball is a 87 y.o male with a hx of dementia , DM2, RA, HTN, and HLD who presented to the emergency room with frequent falls after being found to have orthostatic vital signs at his PCP office and bradycardia in ED. - Patient Problems (1) Bradycardia Current Visit: Yes Status: Acute Code(s): R00.1 - BRADYCARDIA, UNSPECIFIED SNOMED Code(s): 19486471 Comment: - Bradycardia improved this AM- continues to have small pauses - asymptomatic - likely the cause of his falls at home - SR with HR in 80s, some second degree block noted. - Appreciate cardiology input, metoprolol, exelon and pramipexole held as can cause bradycardia. EF 50-55%. - Discussion with family yesterday- decline pacemaker and would like to persue hospice- referral sent (2) HTN (hypertension) Current Visit: Yes Status: Acute Code(s): I10 - ESSENTIAL (PRIMARY) HYPERTENSION SNOMED Code(s): 87828973 Comment: - Now with hypotension and bradycardia as per above. - SBP 114 (3) Cwnko-ww-jvtyjrm kidney injury Current Visit: Yes Status: Acute Code(s): N17.9 - ACUTE KIDNEY FAILURE, UNSPECIFIED; N18.9 - CHRONIC KIDNEY DISEASE, UNSPECIFIED SNOMED Code(s): 756919050 Comment: - At baseline. - Lisinopril held, avoid nephrotoxic medications. (4) Dementia Current Visit: Yes Status: Acute Code(s): F03.90 - UNSPECIFIED DEMENTIA WITHOUT BEHAVIORAL DISTURBANCE SNOMED Code(s): 49081562 Comment: - Previously provided 24 hour care at home. 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 - Steady decline recently, refuses food, 17 lb weight loss. - referral sent to hospice (5) Diabetes Current Visit: Yes Status: Acute Code(s): E11.9 - TYPE 2 DIABETES MELLITUS WITHOUT COMPLICATIONS SNOMED Code(s): 14280275 Comment: - BGs well controlled. - Continue BGs q AC with lispro SSI - Hold sitagliptan. (6) HLD (hyperlipidemia) Current Visit: Yes Status: Acute Code(s): E78.5 - HYPERLIPIDEMIA, UNSPECIFIED SNOMED Code(s): 64347401 Comment: - Continue Lipitor (7) DVT prophylaxis Current Visit: Yes Status: Acute Code(s): MOJ8713 - SNOMED Code(s): 045416356 Comment: - Heparin SubQ (8) DNR (do not resuscitate) Current Visit: Yes Status: Acute Comment: Status and Disposition: Inpatient. Discussed goals of care with and family, aware of grim prognosis due to advanced dementia with poor oral intake and weight loss. [facility]. Patient is significantly weak and deconditioned, plan for PT eval. Patient's not able to care for him if he cannot walk, do not have funds for aide coverage at this time. will need NH placement.
[2018-05-01] MEDS: Heparin VIAL(*) 5000 UNITS/ML VIAL (FIVE THOUSAND) SUBCUT SCH ×3 (05:15→22:31)
[2018-05-01] MEDS: traMADol TAB* 50 MG PO SCH ×2 (05:16→18:04)
[2018-05-01] MEDS: Pregabalin CAP(*) 25 MG PO SCH ×2 (09:23→20:44)
[2018-05-01] MEDS: Aspirin EC TAB* 81 MG TAB.EC PO SCH (09:23)
[2018-05-01] MEDS: Docusate CAP* 100 MG PO SCH ×2 (09:23→20:45)
[2018-05-01] MEDS: LEFLUNOMIDE 10 MG PO SCH (09:25)
[2018-05-01] MEDS: Insulin LISPRO* 1 UNITS UNIT SUBCUT SCH ×4 (09:40→21:20)
[2018-05-01] MEDS: Melatonin 3 MG TAB PO PRN (20:45)
--- NOTE | 2018-05-01 21:27 | PN ---
Subjective Date of Service: 05/01/18 Interval History: Confused, appears to be slightly agitated today, confused as to why he is here and what the rehab liaison is. Denies chest pain or shortness of breath. Denies abd pain, n/v/d. Family History: Unchanged from Admission Social History: Unchanged from Admission Past Medical History: Unchanged from Admission Objective Active Medications: Acetaminophen (Tylenol Supp*) 650 mg [place] Q6H PRN PRN Reason: FEVER/PAIN Aspirin (Aspirin Ec Tab*) 81 mg PO DAILY [facility] Last Admin: 05/01/18 09:23 Dose: 81 mg Atropine Sulfate (Atropine Syringe*) 0.5 mg IV ONCE PRN PRN Reason: SEE COMMENTS Docusate Sodium (Colace Cap*) 100 mg PO BID [facility] Last Admin: 05/01/18 20:45 Dose: 100 mg Heparin Sodium (Porcine) (Heparin Vial(*)) 5,000 units SUBCUT Q8HR [facility] Last Admin: 05/01/18 15:20 Dose: 5,000 units Insulin Human Lispro (Humalog*) 0 units SUBCUT ACHS [facility]; Protocol Last Admin: 05/01/18 21:20 Dose: Not Given Leflunomide (Arava (Nf)) 10 mg PO DAILY [facility]; Protocol Last Admin: 05/01/18 09:25 Dose: 10 mg Melatonin (Melatonin) 3 mg PO BEDTIME PRN; Protocol PRN Reason: Sleep Last Admin: 05/01/18 20:45 Dose: 3 mg Ondansetron HCl (Zofran Odt Tab*) 4 mg PO Q6H PRN PRN Reason: n/v Last Admin: 04/25/18 01:32 Dose: 4 mg Pregabalin (Lyrica Cap(*)) 75 mg PO BID [facility] Last Admin: 05/01/18 20:44 Dose: 75 mg Tramadol HCl (Ultram*) 50 mg PO 0600,1800 [facility] Last Admin: 05/01/18 18:04 Dose: 50 mg Vital Signs - 8 hr 05/01/18 05/01/18 05/01/18 15:24 18:04 20:44 Pulse Rate 55 Respiratory 14 16 18 Rate Blood Pressure 104/43 (mmHg) O2 Sat by Pulse 98 Oximetry 05/01/18 21:17 Pulse Rate Respiratory 18 Rate Blood Pressure (mmHg) O2 Sat by Pulse Oximetry Oxygen Devices in Use Now: Nasal Cannula Appearance: appears comfortable, sitting in the chair , confused Eyes: No Scleral Icterus Ears/Nose/Mouth/Throat: Clear Oropharnyx, Mucous Membranes Moist Neck: NL Appearance and Movements; NL JVP, Trachea Midline Respiratory: Symmetrical Chest Expansion and Respiratory Effort, Clear to Auscultation Cardiovascular: NL Sounds; No Murmurs; No JVD, No Edema Abdominal: NL Sounds; No Tenderness; No Distention Extremities: No Edema, No Clubbing, Cyanosis Skin: No Rash or Ulcers Neurological: - - confused Nutrition: Taking PO's Result Diagrams: 04/28/18 05:51 04/28/18 05:51 Additional Lab and Data: Lab Results 04/24/18 04/24/18 04/24/18 Range/Units 16:25 16:25 16:25 WBC 10.9 H (3.5-10.8) 10^3/ul RBC 4.12 (4.00-5.40) 10^6/ul Hgb 12.4 L (14.0-18.0) g/dl Hct 37 L (42-52) % MCV 90 (80-94) fL MCH 30 (27-31) pg MCHC 34 (31-36) g/dl RDW 15 (10.5-15) % Plt Count 261 (150-450) 10^3/ul MPV 8.0 (7.4-10.4) um3 Neut % (Auto) 83.5 H (38-83) % Lymph % (Auto) 7.2 L (25-47) % [place] % (Auto) 5.5 (0-7) % Eos % (Auto) 3.1 (0-6) % Baso % (Auto) 0.7 (0-2) % Absolute Neuts (auto) 9.8 H (1.5-7.7) 10^3/ul Absolute Lymphs (auto) 0.8 L (1.0-4.8) 10^3/ul Absolute Monos (auto) 0.6 (0-0.8) 10^3/ul Absolute Eos (auto) 0.4 (0-0.6) 10^3/ul Absolute Basos (auto) 0.1 (0-0.2) 10^3/ul Absolute Nucleated RBC 0 10^3/ul Nucleated RBC % 0.2 Sodium 142 (135-145) mmol/L Potassium 4.6 (3.5-5.0) mmol/L Chloride 110 (101-111) mmol/L Carbon Dioxide 24 (22-32) mmol/L Anion Gap 8 (2-11) mmol/L BUN 73 H (6-24) mg/dL Creatinine 3.01 H (0.67-1.17) mg/dL Est GFR ( Amer) 24.1 (>60) Est GFR (Non-Af Amer) 19.9 (>60) BUN/Creatinine Ratio 24.3 H (8-20) Glucose 94 (70-100) mg/dL Lactic Acid 0.9 (0.5-2.0) mmol/L Calcium 8.9 (8.6-10.3) mg/dL Total Bilirubin 0.40 (0.2-1.0) mg/dL AST 22 (13-39) U/L ALT 12 (7-52) U/L Alkaline Phosphatase 57 (34-104) U/L Troponin I 0.05 H* (<0.04) ng/mL Total Protein 6.5 (6.4-8.9) g/dL Albumin 3.2 (3.2-5.2) g/dL Globulin 3.3 (2-4) g/dL Albumin/Globulin Ratio 1.0 (1-3) Microbiology and Other Data: Microbiology 04/26/18 04:40 Urine Culture - Final Urine No Growth (<1,000 CFU/mL) Assess/Plan/Problems-Billing Assessment: Mr. Kimball is a 87 y.o male with a hx of dementia , DM2, RA, HTN, and HLD who presented to the emergency room with frequent falls after being found to have orthostatic vital signs at his PCP office and bradycardia in ED. - Patient Problems (1) Bradycardia Current Visit: Yes Status: Acute Code(s): R00.1 - BRADYCARDIA, UNSPECIFIED SNOMED Code(s): 57774118 Comment: - Bradycardia - continues to have small pauses - asymptomatic - likely the cause of his falls at home - SR with HR in 80s on the monitor today, - Appreciate cardiology input, metoprolol, exelon and pramipexole held as can cause bradycardia. EF 50-55%. - Discussion with family yesterday- decline pacemaker and would like to persue hospice- referral sent- Has acceptance at [facility] with hospice - [facility]. (2) HTN (hypertension) Current Visit: Yes Status: Acute Code(s): I10 - ESSENTIAL (PRIMARY) HYPERTENSION SNOMED Code(s): 38531889 Comment: - Now with hypotension and bradycardia as per above. - SBP 104 (3) Cgcyp-vv-zllnmiu kidney injury Current Visit: Yes Status: Acute Code(s): N17.9 - ACUTE KIDNEY FAILURE, UNSPECIFIED; N18.9 - CHRONIC KIDNEY DISEASE, UNSPECIFIED SNOMED Code(s): 535383606 Comment: - At baseline. - Lisinopril stopped, avoid nephrotoxic medications. (4) Dementia Current Visit: Yes Status: Acute Code(s): F03.90 - UNSPECIFIED DEMENTIA WITHOUT BEHAVIORAL DISTURBANCE SNOMED Code(s): 93129620 Comment: - Previously provided 24 hour care at home. Patient often not aware of who she was, frequent attempts to leave home and drive gluer or car. - Steady decline recently, refuses food, 17 lb weight loss. - referral sent to hospice - will be discharge to [facility] with hospice (5) Diabetes Current Visit: Yes Status: Acute Code(s): E11.9 - TYPE 2 DIABETES MELLITUS WITHOUT COMPLICATIONS SNOMED Code(s): 84108099 Comment: - BGs well controlled. - Continue BGs q AC with lispro SSI - Hold sitagliptan. (6) DVT prophylaxis Current Visit: Yes Status: Acute Code(s): KYT3368 - SNOMED Code(s): 343689970 Comment: - Heparin SubQ (7) DNR (do not resuscitate) Current Visit: Yes Status: Acute Comment: Status and Disposition: Discharge to [facility] when able with hospice care
[2018-05-02] MEDS: traMADol TAB* 50 MG PO SCH (05:29)
[2018-05-02] MEDS: Heparin VIAL(*) 5000 UNITS/ML VIAL (FIVE THOUSAND) SUBCUT SCH ×3 (05:29→22:07)
[2018-05-02] MEDS: Pregabalin CAP(*) 25 MG PO SCH ×2 (10:42→22:04)
[2018-05-02] MEDS: LEFLUNOMIDE 10 MG PO SCH (10:42)
[2018-05-02] MEDS: Aspirin EC TAB* 81 MG TAB.EC PO SCH (10:42)
[2018-05-02] MEDS: Docusate CAP* 100 MG PO SCH ×2 (10:42→22:05)
[2018-05-02] MEDS: Insulin LISPRO* 1 UNITS UNIT SUBCUT SCH ×4 (11:06→21:27)
--- NOTE | 2018-05-02 23:09 | PN ---
Subjective Date of Service: 05/02/18 Interval History: Long discussion with the family today, testing results reviewed, plan of care reviewed again, family continues to want comfort measures. Family is looking into [facility] for placement. would like a reevaluation from hospice. patient remains confused , more tired today, opens eyes to name, denies chest pain or shortness of breath. denies abd pain N/V/D. Family History: Unchanged from Admission Social History: Unchanged from Admission Past Medical History: Unchanged from Admission Objective Active Medications: Acetaminophen (Tylenol Supp*) 650 mg [place] Q6H PRN PRN Reason: FEVER/PAIN Aspirin (Aspirin Ec Tab*) 81 mg PO DAILY [facility] Last Admin: 05/02/18 10:42 Dose: 81 mg Atropine Sulfate (Atropine Syringe*) 0.5 mg IV ONCE PRN PRN Reason: SEE COMMENTS Docusate Sodium (Colace Cap*) 100 mg PO BID [facility] Last Admin: 05/02/18 22:05 Dose: 100 mg Heparin Sodium (Porcine) (Heparin Vial(*)) 5,000 units SUBCUT Q8HR [facility] Last Admin: 05/02/18 22:07 Dose: 5,000 units Insulin Human Lispro (Humalog*) 0 units SUBCUT ACHS [facility]; Protocol Last Admin: 05/02/18 21:27 Dose: Not Given Leflunomide (Arava (Nf)) 10 mg PO DAILY [facility]; Protocol Last Admin: 05/02/18 10:42 Dose: 10 mg Melatonin (Melatonin) 3 mg PO BEDTIME PRN; Protocol PRN Reason: Sleep Last Admin: 05/01/18 20:45 Dose: 3 mg Ondansetron HCl (Zofran Odt Tab*) 4 mg PO Q6H PRN PRN Reason: n/v Last Admin: 04/25/18 01:32 Dose: 4 mg Pregabalin (Lyrica Cap(*)) 75 mg PO BID [facility] Last Admin: 05/02/18 22:04 Dose: 75 mg Vital Signs - 8 hr 05/02/18 05/02/18 05/02/18 15:18 19:36 20:00 Temperature 98.5 F 98.3 F Pulse Rate 84 87 Respiratory 18 22 20 Rate Blood Pressure 140/59 119/58 (mmHg) O2 Sat by Pulse 98 98 Oximetry 05/02/18 22:04 Temperature Pulse Rate Respiratory 18 Rate Blood Pressure (mmHg) O2 Sat by Pulse Oximetry Oxygen Devices in Use Now: Nasal Cannula Appearance: frail , tired and confused elderly male Eyes: No Scleral Icterus Ears/Nose/Mouth/Throat: Clear Oropharnyx, Mucous Membranes Moist Neck: NL Appearance and Movements; NL JVP, Trachea Midline Respiratory: Symmetrical Chest Expansion and Respiratory Effort, Clear to Auscultation Cardiovascular: NL Sounds; No Murmurs; No JVD, No Edema Abdominal: NL Sounds; No Tenderness; No Distention Extremities: No Edema, No Clubbing, Cyanosis Skin: No Rash or Ulcers Neurological: Alert and Oriented x 3 Nutrition: Taking PO's Result Diagrams: 04/28/18 05:51 04/28/18 05:51 Additional Lab and Data: Lab Results 04/24/18 04/24/18 04/24/18 Range/Units 16:25 16:25 16:25 WBC 10.9 H (3.5-10.8) 10^3/ul RBC 4.12 (4.00-5.40) 10^6/ul Hgb 12.4 L (14.0-18.0) g/dl Hct 37 L (42-52) % MCV 90 (80-94) fL MCH 30 (27-31) pg MCHC 34 (31-36) g/dl RDW 15 (10.5-15) % Plt Count 261 (150-450) 10^3/ul MPV 8.0 (7.4-10.4) um3 Neut % (Auto) 83.5 H (38-83) % Lymph % (Auto) 7.2 L (25-47) % [place] % (Auto) 5.5 (0-7) % Eos % (Auto) 3.1 (0-6) % Baso % (Auto) 0.7 (0-2) % Absolute Neuts (auto) 9.8 H (1.5-7.7) 10^3/ul Absolute Lymphs (auto) 0.8 L (1.0-4.8) 10^3/ul Absolute Monos (auto) 0.6 (0-0.8) 10^3/ul Absolute Eos (auto) 0.4 (0-0.6) 10^3/ul Absolute Basos (auto) 0.1 (0-0.2) 10^3/ul Absolute Nucleated RBC 0 10^3/ul Nucleated RBC % 0.2 Sodium 142 (135-145) mmol/L Potassium 4.6 (3.5-5.0) mmol/L Chloride 110 (101-111) mmol/L Carbon Dioxide 24 (22-32) mmol/L Anion Gap 8 (2-11) mmol/L BUN 73 H (6-24) mg/dL Creatinine 3.01 H (0.67-1.17) mg/dL Est GFR ( Amer) 24.1 (>60) Est GFR (Non-Af Amer) 19.9 (>60) BUN/Creatinine Ratio 24.3 H (8-20) Glucose 94 (70-100) mg/dL Lactic Acid 0.9 (0.5-2.0) mmol/L Calcium 8.9 (8.6-10.3) mg/dL Total Bilirubin 0.40 (0.2-1.0) mg/dL AST 22 (13-39) U/L ALT 12 (7-52) U/L Alkaline Phosphatase 57 (34-104) U/L Troponin I 0.05 H* (<0.04) ng/mL Total Protein 6.5 (6.4-8.9) g/dL Albumin 3.2 (3.2-5.2) g/dL Globulin 3.3 (2-4) g/dL Albumin/Globulin Ratio 1.0 (1-3) Microbiology and Other Data: Microbiology 04/26/18 04:40 Urine Culture - Final Urine No Growth (<1,000 CFU/mL) Assess/Plan/Problems-Billing Assessment: Mr. Kimball is a 87 y.o male with a hx of dementia , DM2, RA, HTN, and HLD who presented to the emergency room with frequent falls after being found to have orthostatic vital signs at his PCP office and bradycardia in ED. - Patient Problems (1) Bradycardia Current Visit: Yes Status: Acute Code(s): R00.1 - BRADYCARDIA, UNSPECIFIED SNOMED Code(s): 26363444 Comment: - Bradycardia - asymptomatic - monitored d/c - patient is comfort care - likely the cause of his falls at home - SR with HR in 80s on the monitor today, - Appreciate cardiology input, metoprolol, exelon and pramipexole held as can cause bradycardia. EF 50-55%. - Discussion with family yesterday- decline pacemaker and would like to persue hospice- referral sent- Has acceptance at [facility] with hospice- [facility]. (2) HTN (hypertension) Current Visit: Yes Status: Acute Code(s): I10 - ESSENTIAL (PRIMARY) HYPERTENSION SNOMED Code(s): 30960197 Comment: - Now with hypotension and bradycardia as per above. - SBP 104 - comfort care (3) Diljl-ez-wlprtty kidney injury Current Visit: Yes Status: Acute Code(s): N17.9 - ACUTE KIDNEY FAILURE, UNSPECIFIED; N18.9 - CHRONIC KIDNEY DISEASE, UNSPECIFIED SNOMED Code(s): 779997908 Comment: - At baseline. - Lisinopril stopped, avoid nephrotoxic medications. (4) Dementia Current Visit: Yes Status: Acute Code(s): F03.90 - UNSPECIFIED DEMENTIA WITHOUT BEHAVIORAL DISTURBANCE SNOMED Code(s): 63418460 Comment: - Previously provided 24 hour care at home. 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 - Steady decline recently, refuses food, 17 lb weight loss. - referral sent to hospice - will be discharge when facility available - family refused [facility] (5) Diabetes Current Visit: Yes Status: Acute Code(s): E11.9 - TYPE 2 DIABETES MELLITUS WITHOUT COMPLICATIONS SNOMED Code(s): 36675926 Comment: - BGs well controlled. - Continue BGs q AC with lispro SSI - Hold sitagliptan. (6) DVT prophylaxis Current Visit: Yes Status: Acute Code(s): YFY1957 - SNOMED Code(s): 553330547 Comment: - Heparin SubQ (7) DNR (do not resuscitate) Current Visit: Yes Status: Acute Comment: Status and Disposition: Patient can be discharge- [facility] refused by family
[2018-05-03] MEDS: Heparin VIAL(*) 5000 UNITS/ML VIAL (FIVE THOUSAND) SUBCUT SCH ×3 (06:21→22:00)
[2018-05-03] MEDS: Aspirin EC TAB* 81 MG TAB.EC PO SCH (07:39)
[2018-05-03] MEDS: LEFLUNOMIDE 10 MG PO SCH (07:39)
[2018-05-03] MEDS: Pregabalin CAP(*) 25 MG PO SCH ×2 (07:39→21:57)
[2018-05-03] MEDS: Docusate CAP* 100 MG PO SCH ×2 (07:39→21:58)
[2018-05-03] MEDS: Insulin LISPRO* 1 UNITS UNIT SUBCUT SCH ×4 (08:38→21:06)
--- NOTE | 2018-05-03 15:12 | CONSULT ---
Palliative / Hospice Consult Ordering Provider: Alize Marks - Subjective Code Status: DNR Advance Directives Location: No Advance Directives MOLST Part A Completed: Yes - DNR MOLST Part E Completed:: Yes - DNI - History or Present Illness History or Present Illness: This 87 year old man has had progressive debility over the past 6 months, requiring increasing care by his , also 87 yo. He has a history of progressive dementia, CAD with MT, DM2, RA, HTN and HLD. He came to the hospital after having repeated falls at home. 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 He was hyportnesive. His beta blockers and antihypertensives have been discontinued, and his BP has improved and his HR is now in the 70-90 range. His family has been struggling with a choice between comfort care and rehab. The patient is able to converse, has some incontinence and needs help with several ADLs, but is also quite confused and Ox1. He has some renal dysfunction with eGFR in the 30 + range. Echocardiogram is consistent with mild diastolic dysfunction with LVH, no significant valvular disease. Lab Values: Abnormal Lab Results 05/02/18 05/02/18 05/03/18 16:26 20:37 08:29 POC Glucose (mg/dL) 90 142 H 128 H 05/03/18 11:15 POC Glucose (mg/dL) 150 H Laboratory Last Values WBC 7.9 10^3/ul (3.5-10.8) 04/28/18 05:51 RBC 3.79 10^6/ul (4.00-5.40) L 04/28/18 05:51 Hgb 11.2 g/dl (14.0-18.0) L 04/28/18 05:51 Hct 34 % (42-52) L 04/28/18 05:51 MCV 89 fL (80-94) 04/28/18 05:51 MCH 30 pg (27-31) 04/28/18 05:51 MCHC 33 g/dl (31-36) 04/28/18 05:51 RDW 15 % (10.5-15) 04/28/18 05:51 Plt Count 194 10^3/ul (150-450) 04/28/18 05:51 MPV 8.0 um3 (7.4-10.4) 04/28/18 05:51 Neut % (Auto) 81.3 % (38-83) 04/28/18 05:51 Lymph % (Auto) 10.5 % (25-47) L 04/28/18 05:51 [place] % (Auto) 5.2 % (0-7) 04/28/18 05:51 Eos % (Auto) 2.3 % (0-6) 04/28/18 05:51 Baso % (Auto) 0.7 % (0-2) 04/28/18 05:51 Absolute Neuts (auto) 6.4 10^3/ul (1.5-7.7) 04/28/18 05:51 Absolute Lymphs (auto) 0.8 10^3/ul (1.0-4.8) L 04/28/18 05:51 Absolute Monos (auto) 0.4 10^3/ul (0-0.8) 04/28/18 05:51 Absolute Eos (auto) 0.2 10^3/ul (0-0.6) 04/28/18 05:51 Absolute Basos (auto) 0.1 10^3/ul (0-0.2) 04/28/18 05:51 Absolute Nucleated RBC 0 10^3/ul 04/28/18 05:51 Nucleated RBC % 0 04/28/18 05:51 INR (Anticoag Therapy) 1.00 (0.77-1.02) 04/24/18 23:53 APTT 30.4 seconds (26.0-36.3) 04/24/18 23:53 Sodium 142 mmol/L (135-145) 04/28/18 05:51 Potassium 4.6 mmol/L (3.5-5.0) 04/28/18 05:51 Chloride 117 mmol/L (101-111) H 04/28/18 05:51 Carbon Dioxide 20 mmol/L (22-32) L 04/28/18 05:51 Anion Gap 5 mmol/L (2-11) 04/28/18 05:51 BUN 38 mg/dL (6-24) H 04/28/18 05:51 Creatinine 2.01 mg/dL (0.67-1.17) H 04/28/18 05:51 Est GFR ( Amer) 38.4 (>60) 04/28/18 05:51 Est GFR (Non-Af Amer) 31.7 (>60) 04/28/18 05:51 BUN/Creatinine Ratio 18.9 (8-20) 04/28/18 05:51 Glucose 113 mg/dL (70-100) H 04/28/18 05:51 POC Glucose (mg/dL) 150 mg/dL (70-100) H 05/03/18 11:15 Hemoglobin A1c 6.6 % (4.0-5.6) H 04/24/18 16:25 Lactic Acid 0.9 mmol/L (0.5-2.0) 04/24/18 16:25 Calcium 8.3 mg/dL (8.6-10.3) L 04/28/18 05:51 Total Bilirubin 0.40 mg/dL (0.2-1.0) 04/24/18 16:25 AST 22 U/L (13-39) 04/24/18 16:25 ALT 12 U/L (7-52) 04/24/18 16:25 Alkaline Phosphatase 57 U/L (34-104) 04/24/18 16:25 Troponin I 0.03 ng/mL (<0.04) 04/26/18 11:10 Total Protein 6.5 g/dL (6.4-8.9) 04/24/18 16:25 Albumin 3.2 g/dL (3.2-5.2) 04/24/18 16:25 Globulin 3.3 g/dL (2-4) 04/24/18 16:25 Albumin/Globulin Ratio 1.0 (1-3) 04/24/18 16:25 Triglycerides 175 mg/dL 04/27/18 03:20 Cholesterol 92 mg/dL 04/27/18 03:20 LDL Cholesterol 31 mg/dL 04/27/18 03:20 HDL Cholesterol 25.7 mg/dL 04/27/18 03:20 TSH 5.28 mcIU/mL (0.34-5.60) 04/28/18 05:51 Free T4 0.83 ng/dL (0.61-1.12) 04/28/18 05:51 Urine Color Yellow 04/30/18 05:45 Urine Appearance Cloudy 04/30/18 05:45 Urine pH 5.0 (5-9) 04/30/18 05:45 Ur Specific [place] 1.014 (1.010-1.030) 04/30/18 05:45 Urine Protein 1+(30 mg/dl) (Negative) A 04/30/18 05:45 Urine Ketones Negative (Negative) 04/30/18 05:45 Urine Blood 3+ (Negative) A 04/30/18 05:45 Urine Nitrate Negative (Negative) 04/30/18 05:45 Urine Bilirubin Negative (Negative) 04/30/18 05:45 Urine Urobilinogen Negative (Negative) 04/30/18 05:45 Ur Leukocyte Esterase 2+ (Negative) A 04/30/18 05:45 Urine WBC (Auto) 1+(6-10/hpf) (Absent) A 04/30/18 05:45 Urine RBC (Auto) 3+(>10/hpf) (Absent) A 04/30/18 05:45 Uric Acid Crystals Present (Absent) A 04/30/18 05:45 Urine Bacteria Absent (Absent) 04/30/18 05:45 Urine Glucose Negative (Negative) 04/30/18 05:45 - Objective Active Medications: Acetaminophen (Tylenol Supp*) 650 mg OH Q6H PRN PRN Reason: FEVER/PAIN Aspirin (Aspirin Ec Tab*) 81 mg PO DAILY [facility] Last Admin: 05/03/18 07:39 Dose: 81 mg Atropine Sulfate (Atropine Syringe*) 0.5 mg IV ONCE PRN PRN Reason: SEE COMMENTS Docusate Sodium (Colace Cap*) 100 mg PO BID [facility] Last Admin: 05/03/18 07:39 Dose: 100 mg Heparin Sodium (Porcine) (Heparin Vial(*)) 5,000 units SUBCUT Q8HR [facility] Last Admin: 05/03/18 14:03 Dose: 5,000 units Insulin Human Lispro (Humalog*) 0 units SUBCUT ACHS [facility]; Protocol Last Admin: 05/03/18 11:23 Dose: Not Given Leflunomide (Arava (Nf)) 10 mg PO DAILY [facility]; Protocol Last Admin: 05/03/18 07:39 Dose: 10 mg Melatonin (Melatonin) 3 mg PO BEDTIME PRN; Protocol PRN Reason: Sleep Last Admin: 05/01/18 20:45 Dose: 3 mg Ondansetron HCl (Zofran Odt Tab*) 4 mg PO Q6H PRN PRN Reason: n/v Last Admin: 04/25/18 01:32 Dose: 4 mg Pregabalin (Lyrica Cap(*)) 75 mg PO BID [facility]ATHY Last Admin: 05/03/18 07:39 Dose: 75 mg Vital Signs: Vital Signs: Temp Pulse Resp BP Pulse Ox 97.1 F 77 20 143/64 99 05/03/18 11:41 05/03/18 11:41 05/03/18 11:41 05/03/18 11:41 05/03/18 11:41 Patient Weight: Weight 147 lb 12.8 oz Intake and Output: Intake & Output 05/01/18 05/02/18 05/03/18 05/04/18 06:59 06:59 06:59 06:59 Intake Total 250 410 235 360 Output Total 725 725 675 Balance -475 -315 -440 360 Weight 145 lb 8 oz 148 lb 4.8 oz 147 lb 9.6 oz 147 lb 12.8 oz Intake: Oral 250 410 235 360 Output: Urine 0 [place] 725 725 675 Other: # Bowel Movements 0 0 # Voids 0 ADLs: Meal Record Start: 04/24/18 21: 55 Freq: DAILY@0900,1400,1800 Status: Active Protocol: Created 04/24/18 21:55 System (Rec: 04/24/18 21:55 System TELE-C15) Document 04/25/18 09:00 [id number] (Rec: 04/25/18 10:18 WKS4894 TELE-M12) Document 04/25/18 14:00 STW3494 (Rec: 04/25/18 15:36 MKU7290 TELE-M06) Document 04/25/18 18:00 FVB8956 (Rec: 04/25/18 18:45 QFM1080 TELE-M12) Document 04/26/18 14:00 MPF6441 (Rec: 04/26/18 16:15 BZO3481 ICU-C16) Document 04/26/18 18:00 ZML7312 (Rec: 04/26/18 19:09 JQS7965 ICU-C11) Document 04/27/18 09:00 VQD9201 (Rec: 04/27/18 09:52 JPS9589 ICU-C20) Document 04/27/18 17:34 QUN4645 (Rec: 04/27/18 17:34 RHD5312 ISDEMO-M03 ) Document 04/28/18 09:00 YKL9292 (Rec: 04/28/18 12:13 VSV0981 ICU-C16) Document 04/28/18 16:36 CTS9875 (Rec: 04/28/18 16:36 DSL5722 ICU-C16) Document 04/28/18 18:00 UOF3226 (Rec: 04/28/18 18:37 LJX7138 ICU-C16) Document 04/29/18 09:00 TNO1596 (Rec: 04/29/18 10:13 PQD7935 TELE-C07) Document 04/29/18 14:00 SPI4728 (Rec: 04/29/18 14:41 ZDH5674 TELE-C07) Document 04/29/18 18:00 PCE9106 (Rec: 04/29/18 21:10 TYR7256 TELE-C07) Document 04/30/18 14:00 MKC1389 (Rec: 04/30/18 15:18 HLG3871 TELE-C01) Document 04/30/18 18:00 UAY3654 (Rec: 04/30/18 18:52 MLV8322 TELE-C07) Document 05/01/18 09:00 RDR9803 (Rec: 05/01/18 10:08 YJR0585 TELE-C05) Document 05/01/18 13:12 GNC4863 (Rec: 05/01/18 13:12 KSR8813 TELE-C05) Document 05/01/18 18:00 VYY3909 (Rec: 05/01/18 22:26 APJ4490 TELE-C01) Document 05/02/18 09:00 FFV0669 (Rec: 05/02/18 13:26 YQO4375 TELE-C05) Document 05/02/18 14:00 MWL0233 (Rec: 05/02/18 14:37 VEN1344 TELE-C13) Document 05/02/18 18:00 MGV2275 (Rec: 05/02/18 20:34 ZML6982 TELE-C07) Document 05/03/18 09:00 GDO2981 (Rec: 05/03/18 12:44 AAF6872 MED-C11) Document 05/03/18 14:00 FTE5146 (Rec: 05/03/18 15:01 DPB4573 MED-C11) ADLs: Meal Record Start: 04/26/18 08: 27 Freq: 09,13,18 Status: Complete Protocol: Created 04/26/18 08:27 (Rec: 04/26/18 08:27 ICU-C16) ADLs: Meal Record Start: 04/29/18 23: 17 Freq: Status: Active Protocol: Created 04/29/18 23:17 [id number] (Rec: 04/29/18 23:17 PRP6714 TELE-C05) Document 04/30/18 16:30 ESU1674 (Rec: 04/30/18 16:30 QPG7608 TELE-C07) Intake and Output Start: 04/24/18 15: 26 Freq: Status: Active Protocol: Created 04/24/18 15:26 System (Rec: 04/24/18 15:26 System ED-C24) Intake and Output Start: 04/24/18 21: 55 Freq: DAILY@0600,1400,2200 Status: Active Protocol: Created 04/24/18 21:55 System (Rec: 04/24/18 21:55 System TELE-C15) Document 04/25/18 06:00 PBD3520 (Rec: 04/25/18 07:22 TYL6508 [id number]) Document 04/25/18 14:00 FPQ1980 (Rec: 04/25/18 15:36 AOI3580 TELE-M06) Document 04/25/18 21:15 PSO2848 (Rec: 04/25/18 21:15 UKC9332 TELE-M12) Document 04/26/18 05:30 IRS7825 (Rec: 04/26/18 05:35 GDU5363 TELE-M06) Document 04/26/18 22:00 HKM0048 (Rec: 04/26/18 23:09 NNQ7769 ICU-C16) Document 04/27/18 06:00 XGP3316 (Rec: 04/27/18 06:04 SCZ5170 ICU-C16) Document 04/27/18 15:00 TBN6314 (Rec: 04/27/18 17:52 VME2099 ICU-C15) Document 04/27/18 17:53 QQG9577 (Rec: 04/27/18 17:53 PZH2713 ICU-C15) Document 04/27/18 22:00 YJS5149 (Rec: 04/27/18 22:27 ZSL8876 ICU-C16) Document 04/28/18 06:00 JTK1972 (Rec: 04/28/18 07:39 TNJ7458 ICU-C16) Document 04/28/18 10:47 FYD8578 (Rec: 04/28/18 10:47 YYW0758 ISDEMO-M03 ) Document 04/28/18 14:00 YST3699 (Rec: 04/28/18 14:48 ZJD3424 ICU-C16) Document 04/28/18 15:00 PBY3415 (Rec: 04/28/18 15:03 VZH1431 ICU-C16) Document 04/28/18 16:00 CIT3812 (Rec: 04/28/18 16:36 WSB6015 ICU-C16) Document 04/28/18 18:00 MWX5198 (Rec: 04/28/18 18:41 LJH3578 ICU-C16) Document 04/28/18 19:00 VYQ4995 (Rec: 04/28/18 20:30 HZN3220 ICU-L03) Document 04/28/18 20:00 MEJ2744 (Rec: 04/28/18 21:40 EKR2251 TELE-C09) Document 04/28/18 21:00 JKE8237 (Rec: 04/28/18 21:39 RPF2400 TELE-C09) Document 04/28/18 21:50 LGY3072 (Rec: 04/28/18 21:51 GVX2684 TELE-C09) Document 04/28/18 22:26 GWM0208 (Rec: 04/28/18 22:26 VNO7843 TELE-C09) Document 04/29/18 06:00 VVB7397 (Rec: 04/29/18 06:25 YWK3809 TELE-C01) Document 04/29/18 14:00 GTP5533 (Rec: 04/29/18 14:41 ZEK6567 TELE-C07) Document 04/29/18 22:00 SMH2168 (Rec: 04/29/18 22:33 YBH0026 TELE-C07) Document 04/30/18 06:00 YPI7194 (Rec: 04/30/18 06:44 XXF1444 TELE-C01) Document 04/30/18 14:00 LQX0886 (Rec: 04/30/18 15:18 SHZ7337 TELE-C01) Document 04/30/18 22:00 KJL9176 (Rec: 04/30/18 22:23 KBD7861 TELE-C11) Document 05/01/18 06:00 CKF9532 (Rec: 05/01/18 06:08 QKQ0552 TELE-C34) Document 05/01/18 14:00 VNW9183 (Rec: 05/01/18 15:14 BLD8448 TELE-C07) Document 05/01/18 22:00 VKU7546 (Rec: 05/01/18 22:29 AXK9030 TELE-C01) Document 05/02/18 06:00 CFN7472 (Rec: 05/02/18 07:03 FNF9316 TELE-C33) Document 05/02/18 14:00 RHG0703 (Rec: 05/02/18 14:37 CAH0365 TELE-C13) Document 05/02/18 22:00 EGD0969 (Rec: 05/02/18 22:07 XZD9327 TELE-C07) Document 05/03/18 05:49 SAP4763 (Rec: 05/03/18 05:49 RVG3162 MED-C02) Document 05/03/18 11:22 THR0984 (Rec: 05/03/18 11:22 ZQV5470 MED-C05) Document 05/03/18 14:00 DPO7472 (Rec: 05/03/18 15:01 UDE9268 MED-C11) Intake and Output Start: 04/26/18 08: 27 Freq: Q1HR Status: Complete Protocol: Created 04/26/18 08:27 [id number] (Rec: 04/26/18 08:27 ICU-C16) General Impression: Pleasant, smiling confused man in NAD. Head: Symmetrical Eyes: No Scleral Icterus Ears/Nose/Mouth/Throat: Clear Oropharnyx, Mucous Membranes Moist Neck: NL Appearance and Movements; NL JVP, Trachea Midline Cardiovascular: NL Sounds; No Murmurs; No JVD, No Edema Respiratory: Symmetrical Chest Expansion and Respiratory Effort Abdominal: NL Sounds; No Tenderness; No Distention Extremities: No Edema, No Clubbing, Cyanosis Neurological: Alert and Oriented x 3 - Assessment Assessment: This patient has dementia but it is not advanced enough to warrant hospice care. His AV block is not serious enough to consider a prognosis of 6 months or less. He is eating and drinking fairly well now. His diabetes is well controlled although he does have diabetic neuropathy. His BP and HR have improved now that his beta blockers and lisinopril have been discontinued. I met at length with the family, who had many questions. I advised them that the patient does not meet criteria for hospice services, and encouraged them to have him enter a [facility] setting, and he has already been accepted at [facility]. I told the family that if he was unable to participate in rehab efforts or if he showed significant decline in his weight or performance ability, we would be glad to reassess him for hospice at the end of his rehab stay. The family should apply for Medicaid. The patient needs an indwelling Christians[place], and the family is concerned that he have this at [facility] as well. - Plan Consult Plan (MU): Palliative - Time On Unit Date of Evaluation: 05/03/18 Hospice Consult Time in: 14:00 Hospice Consult Time Out: 15:00 Hospice Consult Time Total: 60 > 50% of Time Spend In Counseling or Coordinating Care: Yes
--- NOTE | 2018-05-03 17:13 | PN ---
Progress Note - Progress Note Date of Service: 05/03/18 Note: Time spent on discharge including discussion with pt and his nephew, discussion with CM and nurse, exam of pt, review of EMR, preparation of discharge documents 45 minutes.
[2018-05-03] MEDS ORDERED: Senna TAB PO SCH (21:00)
[2018-05-04] MEDS: Heparin VIAL(*) 5000 UNITS/ML VIAL (FIVE THOUSAND) SUBCUT SCH (05:51)
[2018-05-04 07:30] VITALS: BP 148/69
[2018-05-04] MEDS: Insulin LISPRO* 1 UNITS UNIT SUBCUT SCH (07:30)
--- NOTE | 2018-05-04 08:05 | TRS ---
CC: Dr. Dominic Layton; [facility] * TRANSFER SUMMARY: DATE OF ADMISSION: 04/26/18 DATE OF DISCHARGE: 05/03/18 HISTORY OF PRESENT ILLNESS: This 87-year-old man was sent by his primary care physician for admission because of frequent falls at home and orthostatic vital signs in the office. He had 4 or 5 falls in the past week, also a 17-pound weight loss. I note he was on lisinopril and furosemide; both of these medications were stopped on admission. He was given some intravenous fluids. His vital signs improved; however, his dementia was rather advanced. He ate poorly. He did not participate in ambulating. He was seen by Dr. Beck who felt he, at this time, did not qualify for hospice care; however, he may certainly be in the situation where hospitalization for many illnesses might not be to his benefit and that should be considered by the family and the medical staff at [facility]. He did have an echocardiogram showing normal left ventricular ejection fraction. FINAL DIAGNOSES: 1. Dementia. 2. Hypotension and bradycardia. 3. Chronic kidney disease. 4. Diabetes, on diet alone. DISCHARGE MEDICATIONS: 1. Acetaminophen 650 mg every 6 hours p.r.n. 2. Docusate 100 mg b.i.d. 3. Melatonin 3 mg h.s. p.r.n. 4. Aspirin 81 mg daily. 5. Pregabalin 75 mg b.i.d. 6. Pramipexole 0.5 mg b.i.d. 7. Leflunomide 10 mg daily. [id number]/[facility] #: [id number] [facility]
[2018-05-04] MEDS: Pregabalin CAP(*) 25 MG PO SCH (08:21)
[2018-05-04] MEDS: Docusate CAP* 100 MG PO SCH (08:21)
[2018-05-04] MEDS: Aspirin EC TAB* 81 MG TAB.EC PO SCH (08:21)
[2018-05-04] MEDS: LEFLUNOMIDE 10 MG PO SCH (08:22)
== END 2018-05-04 12:05 | DRG 683 ==
LOC: ED 15:17 → OBSVTOIN 21:26 → MEDTELE 21:26 → INTOOBSV 21:26 → MEDTELE 22:38 → ICU 04-26 06:30 → OBSVTOIN 04-26 12:00 → MEDTELE 04-28 21:01 → MED 05-02 22:52
PROVIDERS: ADMIT Hospitalist; ATTEND Internal Medicine
DX: N17.9 Acute kidney failure, unspecified (principal); I44.2 Atrioventricular block, complete; E86.0 Dehydration; E11.22 Type 2 diabetes mellitus with diabetic chronic kidney disease; F03.90 Unspecified dementia, unspecified severity, without behavioral disturbance, psychotic disturbance, mood disturbance, and anxiety; M06.9 Rheumatoid arthritis, unspecified; I95.1 Orthostatic hypotension; Z66 Do not resuscitate; R00.1 Bradycardia, unspecified; I12.9 Hypertensive chronic kidney disease with stage 1 through stage 4 chronic kidney disease, or unspecified chronic kidney disease; N18.9 Chronic kidney disease, unspecified; E78.5 Hyperlipidemia, unspecified; G25.81 Restless legs syndrome; I44.0 Atrioventricular block, first degree; W18.30XA Fall on same level, unspecified, initial encounter; Z79.899 Other long term (current) drug therapy; Z79.82 Long term (current) use of aspirin; Z91.81 History of falling; Y92.009 Unspecified place in unspecified non-institutional (private) residence as the place of occurrence of the external cause
CPT/HCPCS: 36415; 71045; 71046; 74176; 80048; 80053; 80061; 81003; 81015; 83036; 83605; 84439; 84443; 84484; 85025; 85610; 85730; 87040; 87086; 93005; 93306; 99284; A9270-GY; G0378; G8978-GP-CK; G8979-GP-CI; J0330; J0461; J1644

== ENCOUNTER 2018-05-07 09:42 | Inpatient (IN) | payer MEDICARE, BC ==
[2018-05-07] MEDS ORDERED: NS 0.9% 1000 ML*IV.FLUID IV ONE (09:50)
[2018-05-07] MEDS ORDERED: Vancomycin(*) 1,000 MG in NS 0.9% 250 ML* 250 ML IVPB ONE (09:52)
[2018-05-07] MEDS ORDERED: Cefepime 2 GM in Dextrose(*) 2 GM/50 ML BAG IV ONE (09:52)
[2018-05-07] MEDS ORDERED: Vancomycin(*) 1,000 MG BAG/ADDV IVPB ONE (09:59)
[2018-05-07 10:08] LABS: Hematocrit 39 % (42-52); Hemoglobin 12.5 g/dl (14.0-18.0); Mean Corpuscular HGB Conc 32 g/dl (31-36); Mean Corpuscular Hemoglobin 29 pg (27-31); Mean Corpuscular Volume 91 fL (80-94); Mean Platelet Volume 9.1 um3 (7.4-10.4); Platelet Count 284 10^3/ul (150-450); Red Blood Count 4.25 10^6/ul (4.00-5.40); Red Cell Distribution Width 15 % (10.5-15); White Blood Count 21.4 10^3/ul (3.5-10.8)
[2018-05-07] MEDS ORDERED: Acetaminophen TAB* 325 MG PO ONE (10:08)
[2018-05-07 10:18] LABS: INR 1.18 (0.77-1.02)
[2018-05-07] MEDS ORDERED: Acetaminophen SUPP* 650 MG SUPP PR ONE (10:22)
[2018-05-07 10:26] LABS: EGFR Non-African American 15.2 (>60)
--- NOTE | 2018-05-07 10:27 | ED ---
HPI Febrile Illness - HPI Summary HPI Summary: LEVEL 5 CAVEAT DUE TO PATIENT BEING UNRESPONSIVE Pt is an unresponsive 87 y/o male [facility] c/o of fever since last night but did not take any medication. EMS notes the patient is currently sinus tachycardia but is bradycardia at baseline, rales, and a normal BG. The patient was given fluids and ASA en route. The pt is normally on 4L O2 NC at home and is reported to have had multiple falls. This is scribe Dana Gonzalez documenting for attending Dr. Juan MD. - History of Current Complaint Chief Complaint: EDFever Time Seen by Provider: 05/07/18 09:50 Hx Obtained From: EMS Hx From Patient Unobtainable Due To: Other - LEVEL 5 CAVEAT DUE TO PATIENT BEING UNRESPONSIVE Onset/Duration: Started Days Ago - last night, Still Present Timing: Lasting Days - last night Current Severity: None Pain Intensity: 0 Pain Scale Used: 0-10 Numeric Associated Signs and Symptoms: Other: - Positive: Fever - Additional Pertinent History Primary Care Physician: [id number] - Allergy/Home Medications Allergies/Adverse Reactions: Allergies Allergy/AdvReac Type Severity Reaction Status Date / Time No Known Allergies Allergy Verified 05/07/18 09:51 Home Medications: Home Medications Melatonin (NF) 3 mg PO QPM 05/07/18 [History Confirmed 05/07/18] Pregabalin CAP(*) [Lyrica CAP(*)] 75 mg PO BID 05/07/18 [History Confirmed 05/07] PMH/Surg Hx/FS Hx/Imm Hx Previously Healthy: No Endocrine/Hematology History: Reports: Hx Diabetes Denies: Hx Anticoagulant Therapy, Hx Systemic Lupus Erythematosus, Hx Thyroid Disease Cardiovascular History: Reports: Hx Hypercholesterolemia, Hx Hypertension Denies: Hx Congestive Heart Failure, Hx Pacemaker/ICD Respiratory History: Denies: Hx Asthma, Hx Chronic Obstructive Pulmonary Disease (COPD) GI History: Denies: Hx Ulcer History: Denies: Hx Dialysis, Hx Renal Disease Musculoskeletal History: Reports: Hx Rheumatoid Arthritis, Hx Osteoporosis, Other Musculoskeletal History - pain right arm and swelling, fibromyalgia, arthritis Denies: Hx Scoliosis Sensory History: Denies: Hx Contacts or Glasses, Hx Hearing Aid Opthamlomology History: Denies: Hx Contacts or Glasses Neurological History: Denies: Hx Headaches, Other Neuro Impairments/Disorders Psychiatric History: Denies: Hx Panic Disorder - Cancer History Hx Chemotherapy: No - Surgical History Surgery Procedure, Year, and Place: TONSILS. Rt CATARACT Infectious Disease History: No Infectious Disease History: Denies: Hx Hepatitis, Hx Human Immunodeficiency Virus (HIV), Traveled Outside the [place] in Last 30 Days - Family History Known Family History: Positive: Cardiac Disease - Social History Occupation: Retired Alcohol Use: UNK Substance Use Type: Reports: None Smoking Status (MU): Former Smoker Review of Systems Positive: Fever Positive: Other - Positive: sinus tachycardia, rales Positive: Other - multiple falls All Other Systems Reviewed And Are Negative: No Physical Exam - Summary Physical Exam Summary: VITAL SIGNS: Reviewed. GENERAL: Patient is an unresponsive male who looks clammy and ill-appearing. HEAD AND FACE: No signs of trauma. No ecchymosis, hematomas or skull depressions. No sinus tenderness. EYES:. Pupils have anisocoria ; L eye is about 4mm and R eye is 2mm EARS: Hearing grossly intact. Ear canals and tympanic membranes are within normal limits. MOUTH: Dry mouth NECK: Supple, trachea is midline, no adenopathy, no JVD, no carotid bruit, no c- spine tenderness, neck with full ROM. CHEST: Symmetric, no tenderness at palpation LUNGS: Bilateral crackles with decreased breath sounds CVS: Regular rate and rhythm, S1 and S2 present, no murmurs or gallops appreciated. ABDOMEN: Soft, non-tender. No signs of distention. No rebound no guarding, and no masses palpated. Decreased abdominal sounds. EXTREMITIES: FROM in all major joints, no edema, no cyanosis or clubbing. NEURO: Alert and oriented x 3. No acute neurological deficits. Speech is normal and follows commands. SKIN: Dry and warm : Patient has a urianry juárez catheter in place. Triage Information Reviewed: Yes Vital Signs On Initial Exam: Initial Vitals Temp Pulse Resp BP Pulse Ox 99.9 F 102 26 80/40 91 05/07/18 09:45 05/07/18 09:45 05/07/18 09:45 05/07/18 09:45 05/07/18 09:45 Vital Signs Reviewed: Yes Completion Of Physical Exam Limited Due To: Level 5 - Level 5 caveat because patient is unresponsive Appearance: Positive: Ill-Appearing Diagnostics - Vital Signs Vital Signs Temp Pulse Resp BP Pulse Ox 05/07/18 09:57 103.4 F 05/07/18 09:47 93 47 93 05/07/18 09:45 99.9 F 102 26 80/40 91 - Laboratory Lab Results: Lab Results 05/07/18 05/07/18 05/07/18 Range/Units 09:51 09:51 09:51 WBC 21.4 H (3.5-10.8) 10^3/ul RBC 4.25 (4.00-5.40) 10^6/ul Hgb 12.5 L (14.0-18.0) g/dl Hct 39 L (42-52) % MCV 91 (80-94) fL MCH 29 (27-31) pg MCHC 32 (31-36) g/dl RDW 15 (10.5-15) % Plt Count 284 (150-450) 10^3/ul MPV 9.1 (7.4-10.4) um3 Neut % (Auto) Pending Lymph % (Auto) Pending [place] % (Auto) Pending Eos % (Auto) Pending Baso % (Auto) Pending Absolute Neuts (auto) Pending Absolute Lymphs (auto) Pending Absolute Monos (auto) Pending Absolute Eos (auto) Pending Absolute Basos (auto) Pending Absolute Nucleated RBC Pending Nucleated RBC % Pending ESR Pending INR (Anticoag Therapy) 1.18 H (0.77-1.02) APTT 28.9 (26.0-36.3) seconds Fibrinogen 869.4 H (110.8-404.3) mg/dL Blood Type B Positive Antibody Screen Pending Result Diagrams: 05/07/18 09:51 05/07/18 09:51 Lab Statement: Any lab studies that have been ordered have been reviewed, and results considered in the medical decision making process. - Radiology CXR Radiology Interpretation Completed By: Radiologist - IMPRESSION: MINIMAL RIGHT BASILAR ABNORMALITIES, OTHERWISE NEGATIVE. The ED physician has read this radiology report. - EKG 10:09 Cardiac Rate: NL - 98 bpm EKG Rhythm: Sinus Rhythm EKG Interpretation: Normal axes, No ST elevation Course/Dx - Course Assessment/Plan: This patient is a 87-year-old male who presents to the emergency department via ambulance after he was transferred from the [facility] with a chief complaint of being unresponsive. The patient is DNR/DNI however the patient is not doing well in the [facility] therefore he was transferred to the emergency department. Blood test result shows a what was a count of 21.4, hemoglobin 12.5 hematocrit 39 and platelets 284. The CMP shows a sodium 147, carbon dioxide 17 anion gap is 14 BUNs a 65 creatinine of 3.8. Glucose 145. Lactic acid is 2.2, total CPK is an thousand and 66 and troponin 0.14. CRP is an to 50, Percocet toenail is 2.7. Chest x-ray impression: minimal right basilar abnormalities otherwise negative. I believe that the etiology of the infection may be from the lungs or the urine. In the ED course the patient is given and he was alarmed for sepsis therefore the patient was given IV fluids 30 ccs per KG he was given vancomycin and cefepime. At this time I discussed my physical exam and findings with and Dr. Cosme who accepted the patient for admission. The patient is critical. - Febrile Illness Differential Diagnoses: Sepsis - Diagnoses Provider Diagnoses: Sepsis - Provider Notifications Discussed Care Of Patient With: Mary Cosme - Hospitalist Time Discussed With Above Provider: 10:26 Instructed by Provider To: Admit As Inpatient - The hospitalist agreed to admit the patient. - Critical Care Time Critical Care Time: 30-74 min - 30 minutes Discharge - Sign-Out/Discharge Documenting (check all that apply): Patient Departure Signing out patient TO: Mary Cosme Receiving patient FROM: Cory Martinez - Discharge Plan Condition: Stable Disposition: ADMITTED TO [facility] - Billing Disposition and Condition Condition: STABLE Disposition: Admitted to [facility]
--- NOTE | 2018-05-07 10:37 | RAD ---
INDICATION: Unresponsive COMPARISON: April 27, 2018 TECHNIQUE: An AP portable view obtained at 1005 hours is submitted. FINDINGS: Bones/Soft Tissues: There are no acute bony findings. Cardiomediastinal: The cardiomediastinal silhouette is normal. Lungs: There is mild atelectasis or early infiltrate in the right lung base. Pleura: There are no pleural effusions. Other: Mild elevation of the right hemidiaphragm appearing slightly more pronounced. IMPRESSION: MINIMAL RIGHT BASILAR ABNORMALITIES, OTHERWISE NEGATIVE.
[2018-05-07 10:50] LABS: ABS Basophils 0.1 10^3/ul (0-0.2); ABS Eosinophils 0 10^3/ul (0-0.6); ABS Lymphocytes 0.8 10^3/ul (1.0-4.8); ABS Monocytes 1.2 10^3/ul (0-0.8); ABS Neutrophils 19.3 10^3/ul (1.5-7.7); ABS Nucleated RBC 0 10^3/ul; Eosinophil % 0.1 % (0-6); Lymphocyte % 3.7 % (25-47); Nucleated Red Blood Cells % 0
[2018-05-07] MEDS ORDERED: Acetaminophen SUPP* 650 MG SUPP PR PRN (10:54)
[2018-05-07] MEDS ORDERED: Dextrose 50% Syringe 50 ML* 25 GM/50 ML SYRINGE IV PUSH PRN (11:13)
[2018-05-07] MEDS ORDERED: Atropine 1% (ORAL/SL)* 15 ML BTL SL PRN (12:15)
[2018-05-07] MEDS: Morphine INJ* 2 MG/ML 1 ML SYRINGE (TWO MG - NEW SYRINGE VERSION) IV PRN ×2 (12:27→16:32)
[2018-05-07] MEDS: Insulin LISPRO* 1 UNITS UNIT SUBCUT SCH ×2 (12:28→18:04)
--- NOTE | 2018-05-07 12:58 | HP ---
CC: Dr. Layton * HISTORY AND PHYSICAL: DATE OF ADMISSION: 05/07/18 PRIMARY CARE PROVIDER: Dr. Layton CHIEF COMPLAINT: Unresponsive, fever, and hypotension. HISTORY OF PRESENT ILLNESS: Mr. Kimball is an 87-year-old male who was recently hospitalized from 04/24/18 through 05/03/18, where he was treated for intermittent AV block leading to frequent falls. The patient's family during that hospitalization was very much in favor of the patient being signed on to hospice, however, it was not felt that the patient would be a candidate for hospice at this time, as he had improved with withholding some of his usual home medications. Ultimately, the patient was transferred to [facility] on 05/03/18, for subacute rehab. Per the patient's who provides all of the history, the patient looked quite well at the time of his discharge from the hospital. She noted that he was more awake and that he was conversant. She states that she saw the patient on the day prior to this admission and at that point, he was not very talkative, meaning he was not initiating conversation, however, if she asked him a question, he would answer the question. She states he looks completely different at this point. Reportedly, the patient had a fever overnight at [facility], this morning was noted to be hypotensive and unresponsive. PAST MEDICAL HISTORY: 1. Dementia. 2. Type 2 diabetes. 3. Hypotension. 4. Hyperlipidemia. 5. Rheumatoid arthritis. 6. Intermittent AV block. PAST SURGICAL HISTORY: 1. Cataract extraction. 2. Tonsillectomy. MEDICATIONS: 1. Lyrica 75 mg p.o. b.i.d. 2. Mirapex 0.5 mg p.o. b.i.d. 3. Melatonin 3 mg p.o. q.h.s. p.r.n. insomnia. 4. Leflunomide 10 mg p.o. daily. 5. Docusate 100 mg p.o. b.i.d. 6. Aspirin 81 mg p.o. daily. 7. Tylenol suppository 650 mg p.o. q.6 hours p.r.n., pain. ALLERGIES: No known drug allergies. FAMILY HISTORY: Unobtainable from the patient. SOCIAL HISTORY: The patient has a trivial past smoking history. He does not drink alcohol. He had been living with his until this previous hospitalization. 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 His , Chandrika Kimball is his healthcare proxy. REVIEW OF SYSTEMS: Unobtainable from the patient. PHYSICAL EXAMINATION GENERAL: The patient is a well-developed, elderly, acutely ill-appearing male, lying in a stretcher, unresponsive except to calling his name, but in no acute distress. VITAL SIGNS: Blood pressure 80/40, pulse 102, respirations 26, temp 99.9, O2 sat 91% on 4 L. HEENT: The left pupil is round and approximately 4 to 5 mm. It does not respond to light. The left pupils is approximately 3 mm and reacts to light. Extraocular muscle movements are not able to be tested. Oropharynx is clear. Oral mucosa is very dry. The tongue is very furrowed. There is no submandibular, cervical or supraclavicular adenopathy. Thyroid is not enlarged. No thyroid nodules noted. PULMONARY: Gurgling respirations are heard throughout the chest. I do not appreciate any discrete crackles on exam. The patient is quite tachypneic at the time of my exam with the respiratory rate ranging from 45 to 50. CARDIAC: Normal S1, S2. Heart rate is tachycardiac. Heart sounds are distant and difficult to hear over gurgling respirations. There is no lower extremity edema. ABDOMEN: Bowel sounds are present. Abdomen is soft, nontender, nondistended. MUSCULOSKELETAL: The patient does not actively move any of his limbs during my evaluation. NEUROLOGIC: Exam is unable to be performed, as the patient is unable to participate. PSYCH: Exam is unable to be performed, as the patient is unable to participate. SKIN: Warm. It is dry. He has numerous excoriations that are in the healing process noted on the lower legs. The patient has cyanotic appearing fingers and toes with poor capillary refill of approximately 6 seconds on the toes. DIAGNOSTIC STUDIES/LABORATORY DATA: WBC 21.4, hemoglobin 12.5, hematocrit 39 , platelets 284. Sed rate 113, INR 1.18. Fibrinogen 869.4. Sodium 147, potassium 4.7, chloride 116, CO2 17, BUN 65, creatinine 3.80, glucose 145, lactic acid 2.2, calcium 8.7, bilirubin 0.7, AST 53, ALT 25, alk phos 110. CPK 1066. Troponin 0.14. CRP 250.99. BNP 183. Albumin 2.8. Procalcitonin 2.7. ABG 7.. EKG reveals sinus rhythm with a prolonged NH interval with ST depressions in the anterolateral leads. This is a significant change from prior EKG though his heart rate was slower at that time. Chest x-ray reveals minimal right basilar abnormalities, otherwise negative. ASSESSMENT AND PLAN: Mr. Kimball is an 87-year-old male who was recently hospitalized from 04/26/18 through 05/04/18 for falls, where he was found to have an intermittent AV block, who now presents to the emergency room in at least severe sepsis if not septic shock secondary to possible right lower lobe pneumonia versus possible urinary tract infection as the patient does have Christiansen catheter inserted. 1. Severe sepsis versus septic shock secondary to possible right lower lobe pneumonia versus urinary tract infection. At this time, the patient clearly is facing life-threatening infection. The patient has rapidly decompensated. He is markedly tachypneic, hypotensive, and tachycardiac. I feel the hypotension and tachycardia have mildly improved with fluid hydration in the emergency room. In speaking with the patient's , she does request that we attempt IV antibiotics and fluids for a period of time, to see if he can begin to recover from this life- threatening condition. The patient clearly has end-organ dysfunction with an elevated creatinine above his baseline. His previous baseline is around 2.0. His current creatinine is 3.8 and he is in acute hypoxic respiratory failure requiring 4 L of oxygen when he did not require any previously. Additionally, the patient has an elevated troponin of 0.14 that likely represents demand ischemia from his severe sepsis. The patient's lactic acid is mildly elevated at 2.2 and his procalcitonin is elevated at 2.7. I have explained to the patient's that I feel it will be difficult for the patient to recover from this severe illness. She understands, but does wish to again proceed with IV antibiotics and IV fluids. I told her that I will reassess the patient in the next 3 to 4 hours to determine if there has been any improvement in his overall condition. If there has been no improvement, my recommendation to the patient's will be to convert to comfort care measures as he is already showing signs of cyanosis and poor perfusion. I do not believe that the patient will be able to survive this acute illness. The patient has already received vancomycin and cefepime in the emergency room. I will check a vancomycin trough tomorrow morning as I suspect given his renal failure, he likely will not clear the vancomycin very quickly and will not require another dose today. He will, however, be continued on cefepime 2 g IV q.24 hours. 2. Intermittent atrioventricular block, this is not an issue at this time. He will be monitored on telemetry for the time being. The patient's metoprolol has previously been held and this will continue to be held. 3. Type 2 diabetes. The patient's blood sugar on presentation to the emergency room is only very mildly elevated at 145. I will place the patient on fingersticks every 6 hours with a lispro sliding scale. Though if the patient's wishes to switch to comfort measures, this will be discontinued. 4. Hyperlipidemia. Going to hold the patient's statin. 5. Rheumatoid arthritis. The patient is on Leflunomide at baseline. This may have impacted the patient's ability to fight off infection. This will clearly be held at this point. At this point, the patient is unable to express if he has any pain, however, if he does turn around, we can initiate pain medication if needed. 6. DVT prophylaxis: According to the Adult Thrombosis Prophylaxis Risk Factor Assessment Guide, the patient has a total risk factor score of 4 making him high risk. He will be started on the heparin 5000 units subcutaneous q.8 hours for DVT prophylaxis. 7. Code status is DNR/DNI and the patient's MOLST form was updated. TIME SPENT : Sixty five minutes were spent admitting this patient, of which greater than half was spent [id number] with the patient and his reviewing his history and performing a physical exam as well as reviewing prior hospitalization records. This 65 minutes was critical care time. [id number]/[facility] #: [id number] FRANKIE
[2018-05-07] MEDS ORDERED: Heparin VIAL(*) 5000 UNITS/ML VIAL (FIVE THOUSAND) SUBCUT SCH (14:00)
--- NOTE | 2018-05-07 14:25 | PN ---
Sepsis Event Evaluation Date of Evaluation: 05/07/18 Time of Evaluation: 14:11 Current Stage of Sepsis: Severe Sepsis Vital Signs - Last 12 Hours: Vital Signs - 12 hr Temp Pulse Resp BP Pulse Ox 05/07/18 12:53 98.9 F 97 47 99/40 88 05/07/18 12:27 47 05/07/18 11:41 103.4 F 89 47 100/38 93 05/07/18 11:25 94 40 98/52 93 05/07/18 11:10 94 43 91/56 94 05/07/18 11:00 95 47 93 05/07/18 10:55 98 44 105/49 94 05/07/18 10:40 97 46 100/48 92 05/07/18 10:25 98 45 83/50 89 05/07/18 10:10 104 47 91/43 90 05/07/18 10:07 103 48 82/49 91 05/07/18 10:00 107 45 92 05/07/18 09:57 103.4 F 05/07/18 09:47 93 47 93 05/07/18 09:45 99.9 F 102 26 80/40 91 Lactic Acid: 05/07/18 09:51 Lactic Acid 2.2 H* - Cardiopulmonary Exam Capillary Refill: < or = to 5 seconds Respiratory: Symmetrical Chest Expansion and Respiratory Effort, - - gurgling respirations unchanged from prior Cardiovascular: RRR, No Edema - Peripheral Pulse Exam Radial Pulses: Bilateral Normal - Skin Exam Skin Exam: Mottling - of toes, cyanosis of fingers - Jessica Coma Scale Best Eye Response: 3 - To Speech Best Motor Response: 4 - Withdraws Best Verbal Response: 1 - None Coma Scale Total: 8 Assess/Plan/Problems-Billing Assessment:
[2018-05-07] MEDS ORDERED: Morphine INJ* 2 MG/ML 1 ML SYRINGE (TWO MG - NEW SYRINGE VERSION) IV PRN ×2 (18:00→19:22)
--- NOTE | 2018-05-07 19:25 | PN ---
Progress Note - Progress Note Date of Service: 05/07/18 Note: I was notified by nursing that the patient was again markedly hypotensive. I had a discussion with the patient's earlier today about his grim prognosis and at that time she wanted to continue IVF and Abx. With the marked decrease in his BP this evening I went to evaluate the patient. He appears to be guppy breathing. He likely will pass away this evening. I again spoke with the patient 's , this time by phone, and again relayed the message that I believe the patient will this evening. She has agreed to comfort care. She understands we will stop the Abx and IVF. The focus is to be on comfort only. She has informed me that she has been up for almost the last 24hr and needs to sleep. She requests she be called if he dies this evening.
--- NOTE | 2018-05-07 20:04 | PN ---
Progress Note - Progress Note Date of Service: 05/07/18 Note: Date of Admission: 05/07/2018 Date of Discharge: 05/07/2018 Discharge Diagnoses severe septic shock 2nd suspected RLL pneumonia vs UTI HPI Mr. Kimball is an 87-year-old male who was recently hospitalized from 04/24/18 through 05/03/18, where he was treated for intermittent AV block leading to frequent falls. The patient's family during that hospitalization was very much in favor of the patient being signed on to hospice, however, it was not felt that the patient would be a candidate for hospice at this time, as he had improved with withholding some of his usual home medications. Ultimately, the patient was transferred to [facility] on 05/03/18, for subacute rehab. Per the patient's who provides all of the history, the patient looked quite well at the time of his discharge from the hospital. She noted that he was more awake and that he was conversant. She states that she saw the patient on the day prior to this admission and at that point, he was not very talkative, meaning he was not initiating conversation, however, if she asked him a question, he would answer the question. She states he looks completely different at this point. Reportedly, the patient had a fever overnight at [facility], this morning was noted to be hypotensive and unresponsive. Hospital Course Patient was admitted 05/07/2018 after IVF resuscitation & initiation of vancomycin & cefepime in the ED. He did not respond to this initial effort and family decided shortly before 1900 to convert him to comfort-only measures. He continued to rapidly decline, but was able to be maintained comfortably until passing at 1935. Lead Installer was apprised and authorized release of Mr Kimball's body. Discharge Exam pupils fixed absent cardiac sounds absent spontaneous respirations absent carotid & radial pulses Time for Discharge: <30min
--- NOTE | 2018-05-07 20:08 | DS ---
Date of Admission: 05/07/2018 Date of Discharge: 05/07/2018 Discharge Diagnoses severe septic shock 2nd suspected RLL pneumonia vs UTI HPI Mr. Kimball is an 87-year-old male who was recently hospitalized from 04/24/18 through 05/03/18, where he was treated for intermittent AV block leading to frequent falls. The patient's family during that hospitalization was very much in favor of the patient being signed on to hospice, however, it was not felt that the patient would be a candidate for hospice at this time, as he had improved with withholding some of his usual home medications. Ultimately, the patient was transferred to [facility] on 05/03/18, for subacute rehab. Per the patient's who provides all of the history, the patient looked quite well at the time of his discharge from the hospital. She noted that he was more awake and that he was conversant. She states that she saw the patient on the day prior to this admission and at that point, he was not very talkative, meaning he was not initiating conversation, however, if she asked him a question, he would answer the question. She states he looks completely different at this point. Reportedly, the patient had a fever overnight at [facility], this morning was noted to be hypotensive and unresponsive. Hospital Course Patient was admitted 05/07/2018 after IVF resuscitation & initiation of vancomycin & cefepime in the ED. He did not respond to this initial effort and family decided shortly before 1900 to convert him to comfort-only measures. He continued to rapidly decline, but was able to be maintained comfortably until passing at 1935. Steel Wheel Engraver was apprised and authorized release of Mr Kimball's body. Discharge Exam pupils fixed absent cardiac sounds absent spontaneous respirations absent carotid & radial pulses Time for Discharge: <30min
[2018-05-07 21:03] VITALS: BP 61/30
[2018-05-08] MEDS ORDERED: Cefepime 2 GM in Dextrose(*) 2 GM/50 ML BAG IV SCH (09:00)
== END 2018-05-07 19:35 | disposition expired | DRG 871 ==
LOC: ED 09:42 → MED 11:04
PROVIDERS: ADMIT Hospitalist; ATTEND Hospitalist
DX: A41.9 Sepsis, unspecified organism (principal); J18.9 Pneumonia, unspecified organism; J96.01 Acute respiratory failure with hypoxia; R65.21 Severe sepsis with septic shock; N17.9 Acute kidney failure, unspecified; I95.9 Hypotension, unspecified; I24.8 Other forms of acute ischemic heart disease; N39.0 Urinary tract infection, site not specified; I44.39 Other atrioventricular block; F03.90 Unspecified dementia, unspecified severity, without behavioral disturbance, psychotic disturbance, mood disturbance, and anxiety; E11.9 Type 2 diabetes mellitus without complications; M06.9 Rheumatoid arthritis, unspecified; Z66 Do not resuscitate; Z51.5 Encounter for palliative care; R74.8 Abnormal levels of other serum enzymes; E78.5 Hyperlipidemia, unspecified; Z79.84 Long term (current) use of oral hypoglycemic drugs; Z79.1 Long term (current) use of non-steroidal anti-inflammatories (NSAID); Z79.82 Long term (current) use of aspirin; Z79.899 Other long term (current) drug therapy; Z87.891 Personal history of nicotine dependence
CPT/HCPCS: 36415; 71045; 80053; 82550; 82803; 83605; 83880; 84145; 84484; 85025; 85384; 85610; 85652; 85730; 86140; 86850; 86900; 86901; 87040; 87641; 93005; 99283; A9270-GY; J0692; J1644; J2270; J3370